=== PATIENT | female | born 1955 | race Caucasian/White ===

== ENCOUNTER 2022-04-03 16:42 | Emergency (ER) | payer MEDICARE, SELFPAY ==
[2022-04-03 16:51] VITALS: BP 157/71; PULSE 92; RESP 18; TEMP 37.3; O2SAT 97
== END 2022-04-03 17:42 | disposition left against medical advice (07) ==
LOC: EXPBETH 16:50
PROVIDERS: Emergency Provider Registered Nurse; PCP Family Medicine
DX: Z53.21 Procedure and treatment not carried out due to patient leaving prior to being seen by health care provider (principal)
CPT/HCPCS: 99199

== ENCOUNTER 2023-01-18 11:22 | Emergency (ER) | payer MEDICARE, SELFPAY ==
--- NOTE | ~2023-01-18 | XR_ITS ---
EXAMINATION: XR chest 2V DATE: 01/18/2023 12:35 INDICATION: Cough and congestion TECHNIQUE: PA and lateral views of the chest are obtained. COMPARISON: 08/04/2018 FINDINGS: The lungs are free of acute opacities. No pleural effusion or pneumothorax. The cardiomedia stinal silhouette is normal. There is severe thoracic spondylosis. IMPRESSION: 1. No acute cardiopulmonary abnormality. Reviewed, dictated and finalized at location B.
[2023-01-18 11:28] VITALS: BP 139/72; PULSE 62; RESP 20; TEMP 36.4; O2SAT 96
--- NOTE | 2023-01-18 12:11 | ED.URI ---
HPI - URI/Sore Throat General Chief Complaint: Upper Respiratory Infection Stated Complaint: Chest Congestion/Cough Time Seen by Provider: 01/18/23 12:05 Source: patient Mode of arrival: ambulatory Limitations: no limitations History of Present Illness HPI Narrative: 67 year old female who presents to [facility] care with complaints of 10 day history of cough congestion, left ear irritation with no improvement with use of OTC medications. Patient reports that she has had some productive cough of yellowish tinged mucous, denies any fevers chills or sweats or any body aches. Patient reports that she has history of asthma that is usually controlled with Singulair. Patient reports that she has noted some wheezing and some shortness of breath with exertion. MD elicited complaint: cough and other (left ear pain) Pertinent past history: asthma Onset (ago): day(s) (10) Severity: moderate Description of mucous: yellow Able to tolerate fluids by mouth: Yes Treatments prior to arrival: cold medicine and other (antihistamines) Related Data Home Medications Medication Instructions Recorded Confirmed atorvastatin 20 mg tablet mg 01/18/23 gabapentin 300 mg capsule mg 01/18/23 labetalol 200 mg tablet mg 01/18/23 levothyroxine 150 mcg tablet mcg 01/18/23 losartan 50 mg tablet mg 01/18/23 metformin 1,000 mg tablet mg 01/18/23 montelukast 10 mg tablet mg 01/18/23 pantoprazole 40 mg tablet,delayed mg PO 01/18/23 release tizanidine 4 mg tablet mg 01/18/23 tramadol 50 mg tablet mg 01/18/23 Allergies Allergy/AdvReac Type Severity Reaction Status Date / Time Sulfa (Sulfonamide Allergy Intermediate Hives / Verified 08/04/18 09:46 Antibiotics) Red Face Review of Systems Review of Systems: CONSTITUTIONAL: Reports some malaise, no chills, sweats, or fever. EYES: Denies visual changes, redness, or discharge. ENT: Reports rhinorrhea, congestion, no sinus pain,positive for left otalgia, no sore throat. CARDIOVASCULAR: Denies chest pain, palpitations, or edema. RESPIRATORY: Reports cough.?Reports some CLOUD and wheezing GASTROINTESTINAL: Denies abdominal pain, nausea, vomiting, diarrhea SKIN: Denies rash or itching. MUSCULOSKELETAL: Denies myalgia. NEUROLOGIC: Denies headache. All systems reviewed & are unremarkable except as noted in HPI and below PMFSH Past Medical History Medical History (Updated 01/20/23 @ 00:00 by Traci Ignacio) Arthritis Asthma Atrial fibrillation Bronchitis Diabetes GERD (gastroesophageal reflux disease) Hyperlipidemia Hypertension Hypothyroidism Surgical History Surgical History (Updated 01/19/23 @ 10:28 by Shahrzad Carvalho NP) History of cholecystectomy History of dental surgery History of hysterectomy Social History Social History (Updated 01/19/23 @ 10:38 by Shahrzad Carvalho NP) Smoking status: Never smoker Alcohol intake: unknown Substance use type: does not use Living arrangements: with family Gender identity (if verbalized by the patient): Female Comments At time of signature, agree with nursing past medical, surgical, social and family history. There is no relevant family history pertinent to the presenting complaint Exam Narrative: GENERAL: Well-appearing, well-nourished,obese, and in no acute distress. HEAD: Normocephalic EYES: PERRLA, conjunctivae clear ENT: Nares clear, turbinates edematous and erythematous, clear discharge. Mucous membranes moist. TM pearly lópez with dull light reflex bilaterally;Left ear canal red and excoriated no tragal tenderness. Oropharynx erythematous without lesions. Tonsils not enlarged and without exudate, no drooling, no hoarseness, no trismus, uvula midline. NECK: Supple. No lymphadenopathy CHEST: coarse in bases wheezing noted auscultation, breath sounds equal.Positive for wheezing, no rhonchi, rales, or stridor. No respiratory distress, speaks in full sentences.harsh cough at times productive SAO2 9
== END 2023-01-18 13:03 | disposition home or self-care (01) ==
PROVIDERS: Emergency Provider Registered Nurse; PCP Family Medicine
DX: J40 Bronchitis, not specified as acute or chronic (principal); H60.92 Unspecified otitis externa, left ear; M19.90 Unspecified osteoarthritis, unspecified site; J45.909 Unspecified asthma, uncomplicated; I48.91 Unspecified atrial fibrillation; E11.9 Type 2 diabetes mellitus without complications; K21.9 Gastro-esophageal reflux disease without esophagitis; E78.5 Hyperlipidemia, unspecified; I10 Essential (primary) hypertension; E03.9 Hypothyroidism, unspecified
CPT/HCPCS: 71046; 99213; G0463

== ENCOUNTER 2023-04-19 12:21 | Emergency (ER) | payer MEDICARE, SELFPAY ==
--- NOTE | ~2023-04-19 | XR_ITS ---
EXAMINATION: XR lumbar spine 2-3V DATE: 04/19/2023 13:08 INDICATION: Low back pain TECHNIQUE: Anteroposterior and lateral views of the lumbar spine, and cone-down lateral view of the l umbosacral junction were obtained. COMPARISON: None. FINDINGS: There are 3 mm of anterolisthesis of L4 on L5. Body alignment is otherwise maintained. Ther e is mild loss of intervertebral disc space height at L1-2 and L2-3. The vertebral body heights are m aintained. Small degenerative osteophytes project from the anterior endplates of multiple vertebral b odies. There is mild facet joint osteoarthritis of the lower lumbar spine. IMPRESSION: 1. Mild lumbar spondylosis without acute findings. Reviewed, dictated and finalized at location B. [employer]IST
[2023-04-19 12:36] VITALS: BP 138/72; PULSE 63; RESP 18; TEMP 37.2; O2SAT 94
--- NOTE | 2023-04-19 12:47 | ED.BACK ---
HPI - Back Pain/Injury General Chief Complaint: Back Pain/Injury Stated Complaint: Lower Back Injury Source: patient, RN notes reviewed and old records reviewed Mode of arrival: ambulatory Limitations: no limitations History of Present Illness HPI Narrative: 67-year-old female presents to [facility] with complaint of lower back pain this started after patient tried to lift her mother off the floor and felt a pop in lower back this a.m. Patient denies numbness or tingling, loss of bowel or bladder. Patient states pain is worse with movement MD elicited complaint: back pain Onset (ago): hour(s) (4) Related Data Home Medications Medication Instructions Recorded Confirmed atorvastatin 20 mg tablet mg 01/18/23 gabapentin 300 mg capsule mg 01/18/23 labetalol 200 mg tablet mg 01/18/23 levothyroxine 150 mcg tablet mcg 01/18/23 metformin 1,000 mg tablet mg 01/18/23 montelukast 10 mg tablet mg 01/18/23 tizanidine 4 mg tablet mg 01/18/23 tramadol 50 mg tablet mg 01/18/23 Allergies Allergy/AdvReac Type Severity Reaction Status Date / Time Sulfa (Sulfonamide Allergy Intermediate Hives / Verified 04/19/23 12:50 Antibiotics) Red Face methotrexate Allergy Blister Verified 04/19/23 12:49 prednisone AdvReac Other Verified 04/19/23 12:49 Review of Systems Constitutional: Constitutional: Reports no additional constitutional complaints, Denies body ache(s), Denies chills, Denies fatigue, Denies fever(s) and Denies headache(s) Eyes: Eyes: Reports no additional eye complaints and Denies blurry vision ENT: Reports system reviewed and no additional complaints, except as documented, Denies vertigo, Denies dizziness, Denies ear discharge, Denies otalgia, Denies facial pain, Denies headache(s), Denies nasal congestion, Denies nasal discharge, Denies sinus pain, Denies sinus pressure and Denies sore throat Cardiovascular: Cardiovascular: Reports no additional cardiovascular complaints, Denies chest pain, Denies chest pain at rest, Denies rapid heart rate and Denies dyspnea Respiratory: Respiratory: Reports no additional respiratory complaints, Denies chest congestion, Denies cough, Denies pain on inspiration, Denies pain with cough and Denies dyspnea Gastrointestinal: Gastrointestinal: Denies abdominal pain, Denies diarrhea, Denies nausea and Denies vomiting Musculoskeletal: Musculoskeletal: Reports as per HPI and Reports back pain Integumentary/Breasts: Skin/Breast: Denies rash Neurologic: Reports system reviewed and no additional complaints, except as documented, Denies vertigo, Denies dizziness and Denies headache(s) Endocrine: Endocrine: Denies fatigue PMFSH Past Medical History Medical History (Updated 04/19/23 @ 13:18 by Elva Aguilera APRN) Arthritis Asthma Atrial fibrillation Bronchitis Diabetes GERD (gastroesophageal reflux disease) Hyperlipidemia Hypertension Hypothyroidism Surgical History Surgical History (Updated 01/19/23 @ 10:28 by Shahrzad Carvalho NP) History of cholecystectomy History of dental surgery History of hysterectomy Social History Social History (Updated 01/19/23 @ 10:38 by Shahrzad Carvalho NP) Smoking status: Never smoker Alcohol intake: unknown Substance use type: does not use Living arrangements: with family Gender identity (if verbalized by the patient): Female Comments At the time of my signature, I reviewed and agree with the nursing past medical, surgical, social, and family history. There is no relevant family history pertinent to the patient complaint. Exam Const: General: cooperative, healthy appearing, no acute distress and well nourished Nutritional Appearance: well nourished Orientation/consciousness: patient oriented x3 Limitations: no limitations HENMT: Head: normal to inspection and normocephalic Ears: external ears normal, TM's normal bilaterally, mastoids normal and Abnormal EAC present Face/Nose/Sinus: normal facial exam Face and s
== END 2023-04-19 13:23 | disposition home or self-care (01) ==
PROVIDERS: Emergency Provider Registered Nurse; PCP Family Medicine
DX: S39.012A Strain of muscle, fascia and tendon of lower back, initial encounter (principal); I48.91 Unspecified atrial fibrillation; E78.5 Hyperlipidemia, unspecified; I10 Essential (primary) hypertension; E11.9 Type 2 diabetes mellitus without complications; E03.9 Hypothyroidism, unspecified; X50.0XXA Overexertion from strenuous movement or load, initial encounter
CPT/HCPCS: 72100; 99213; G0463

== ENCOUNTER 2023-12-28 18:17 | Emergency (ER) | payer MEDICARE, SELFPAY ==
[2023-12-28 18:28] VITALS: BP 147/77; PULSE 80; RESP 16; TEMP 36.5; O2SAT 96
--- NOTE | 2023-12-28 19:18 | ED.URI ---
HPI - URI/Sore Throat General Chief Complaint: Upper Respiratory Infection Stated Complaint: Cough/Runny Nose History of Present Illness HPI Narrative: patient is a 68-year-old female, past medical history significant for asthma and liver cirrhosis, presents to [facility] care with 1 week history of dry cough that is barking, rhinorrhea and malaise. She denies associated fevers. She states that she began taking antibiotics that were made for fish, as her takes care finish antibiotics when he has only worked well for him. She states that she has been taking these medications for the past 4 days has not found any relief. She has not been on steroids recently. She denies chest pain or shortness of breath, she has not been using her rescue inhaler. She states that she feels her symptoms are reminiscent of bronchitis , prompting her visit Related Data Home Medications Medication Instructions Recorded Confirmed atorvastatin 20 mg tablet mg 01/18/23 gabapentin 300 mg capsule mg 01/18/23 labetalol 200 mg tablet mg 01/18/23 levothyroxine 150 mcg tablet mcg 01/18/23 metformin 1,000 mg tablet mg 01/18/23 montelukast 10 mg tablet mg 01/18/23 tizanidine 4 mg tablet mg 01/18/23 tramadol 50 mg tablet mg 01/18/23 diclofenac sodium 75 mg mg PO 12/28/23 tablet,delayed release meclizine 12.5 mg tablet mg 12/28/23 Allergies Allergy/AdvReac Type Severity Reaction Status Date / Time Sulfa (Sulfonamide Allergy Intermediate Hives / Verified 12/28/23 18:25 Antibiotics) Red Face methotrexate Allergy Blister Verified 12/28/23 18:25 prednisone AdvReac Other Verified 12/28/23 18:25 Review of Systems ENT: Reports as per HPI Respiratory: Respiratory: Reports as per HPI [facility] Past Medical History Medical History (Updated 12/28/23 @ 19:26 by FROYLAN Rogers) Arthritis Asthma Atrial fibrillation Bronchitis Diabetes GERD (gastroesophageal reflux disease) Hyperlipidemia Hypertension Hypothyroidism Surgical History Surgical History (Updated 01/19/23 @ 10:28 by Shahrzad Carvalho NP) History of cholecystectomy History of dental surgery History of hysterectomy Social History Social History (Updated 01/19/23 @ 10:38 by Shahrzad Carvalho NP) Smoking status: Never smoker Alcohol intake: unknown Substance use type: does not use Living arrangements: with family Gender identity (if verbalized by the patient): Female Exam Const: General: healthy appearing and no acute distress Nutritional Appearance: obese Orientation/consciousness: patient oriented x3 Limitations: no limitations HENMT: Head: normal to inspection Face/Nose/Sinus: Normal external nose present and Nasal discharge present clear bilateral ( copious) Mouth: Yes Normal oral and palatal mucosa present Throat: posterior oropharynx normal and uvula midline Eyes: Conjunctivae: conjunctivae normal Pupils: Equal, round and reactive pupils present EOM: EOMs intact bilaterally Neck: Neck: normal visual inspection Chest: Chest palpation & inspection: normal inspection of the chest Resp: Effort & Inspection: normal respiratory effort Cardio: Rate: regular rate Rhythm: regular rhythm Skin: General skin exam: normal color Neuro: General: patient oriented x3 Cranial nerves: Yes Nystagmus not present Speech: normal speech Gait exam (Neuro): Normal gait present Extrem: General: normal to inspection and no clubbing, cyanosis or edema Course Course Emergency Course: patient is advised to plan to treat with steroid taper, promethazine DM, continued use of her inhaler at home, stopping the [id number] fish antibiotics of unknown sort as they are not marked for humans and may be unsafe to take with her other home medications as well as her chronic medical conditions. Follow up with PCP in 3 days without fail, ER for condition worsens in any way. Patient is agreeable with plan. Level of Care: Express Care Visit (92773) Vit
== END 2023-12-28 19:36 | disposition home or self-care (01) ==
PROVIDERS: Emergency Provider Nurse Practitioner Family; PCP Family Medicine
DX: J20.9 Acute bronchitis, unspecified (principal); M19.90 Unspecified osteoarthritis, unspecified site; J45.909 Unspecified asthma, uncomplicated; I48.91 Unspecified atrial fibrillation; E11.9 Type 2 diabetes mellitus without complications; K21.9 Gastro-esophageal reflux disease without esophagitis; E78.5 Hyperlipidemia, unspecified; I10 Essential (primary) hypertension; E03.9 Hypothyroidism, unspecified
CPT/HCPCS: 99213; G0463

== ENCOUNTER 2024-10-10 12:32 | Emergency (ER) | payer MEDICARE, SELFPAY ==
[2024-10-10 12:39] VITALS: BP 143/53; PULSE 70; RESP 20; TEMP 36.9; O2SAT 98
--- NOTE | 2024-10-10 12:48 | ED_ITS ---
HPI - URI/Sore Throat General Chief Complaint: Upper Respiratory Infection Stated Complaint: possible pneumonia Source: patient Mode of arrival: ambulatory Limitations: no limitations History of Present Illness HPI Narrative: 69 y/o female with hx afib and remote hx collapsed lung presented for c/o cough, sob, and chest congestion for over 10 days. Endorses nausea, headache, fatigue and reports wheezing at night. Pt was prescribed albuterol inhaler tessalon perles and doxy / by PCP, but denies improvement. Says she called pcp again yesterday, and was advised to go to the ER. She did not go yesterday because her son was in town before deployment. Related Data Home Medications ?Medication ?Instructions ?Recorded ?Confirmed ?Last Taken ?Type atorvastatin 20 mg tablet mg 01/18/23 Unknown History gabapentin 300 mg capsule mg 01/18/23 Unknown History labetalol 200 mg tablet mg 01/18/23 Unknown History levothyroxine 150 mcg tablet mcg 01/18/23 Unknown History metformin 1,000 mg tablet mg 01/18/23 Unknown History montelukast 10 mg tablet mg 01/18/23 Unknown History tizanidine 4 mg tablet mg 01/18/23 Unknown History tramadol 50 mg tablet mg 01/18/23 Unknown History diclofenac sodium 75 mg mg PO 12/28/23 Unknown History tablet,delayed release benzonatate 100 mg capsule mg PO 10/10/24 Unknown History doxycycline monohydrate 100 mg mg 10/10/24 Unknown History capsule furosemide 40 mg tablet mg 10/10/24 Unknown History Allergies Allergy/AdvReac Type Severity Reaction Status Date / Time Sulfa (Sulfonamide Allergy Intermediate Hives / Verified 10/10/24 12:49 Antibiotics) Red Face methotrexate Allergy Blister Verified 10/10/24 12:49 prednisone AdvReac Other Verified 10/10/24 12:49 Review of Systems Review of Systems: CONSTITUTIONAL: Denies body aches, fever, chills, or sweats. EYES: Denies visual changes, redness, or discharge. ENT: Denies rhinorrhea, congestion, sore throat, or otalgia. CARDIOVASCULAR: Denies chest pain, palpitations, or edema. RESPIRATORY: Reports cough, sob, wheezing. GASTROINTESTINAL: reports nausea Denies abdominal pain, vomiting, or diarrhea. SKIN: Denies rash, itching, or wounds. MUSCULOSKELETAL: Denies back pain, joint pain, or myalgia. NEUROLOGIC: reports headache, Denies numbness, tingling, or weakness. All systems reviewed & are unremarkable except as noted in HPI and below PMFSH Past Medical History Medical History (Updated 10/10/24 @ 13:15 by Joanie Yoon APRN) Atrial fibrillation Arthritis Diabetes Hypothyroidism GERD (gastroesophageal reflux disease) Hyperlipidemia Hypertension Bronchitis Asthma Surgical History Surgical History (Updated 01/19/23 @ 10:28 by Shahrzad Carvalho NP) History of dental surgery History of hysterectomy History of cholecystectomy Social History Social History (Updated 01/19/23 @ 10:38 by Shahrzad Carvalho NP) Smoking status: Never smoker Alcohol intake: unknown Substance use type: does not use Living arrangements: with family Gender identity (if verbalized by the patient): Female Comments At time of signature, I have reviewed and agree with nursing past medical, surgical, social and family history unless otherwise noted. Please see nursing chart for further information. There is no relevant family history pertinent to the presenting complaint Exam 2 Narrative: GENERAL: mildly ill-appearing, in no acute distress. EYES: EOMI. No redness or drainage. Conjunctivae normal. ENT: Mucous membranes pink and moist. No rhinorrhea. NECK: Normal AROM. Supple. CHEST: No respiratory distress; speaks full sentences but appears with effort. Wheezing to left rao. HEART: Regular rate and rhythm. Cardiac murmur is appreciated. ABDOMEN: Soft, nontender, nondistended, normal active bowel sounds. EXTREMITIES: Normal range of motion. Left foot chronic edema. SKIN: Warm, dry, no rash. Capillary refill normal. Normal skin turgor. NEURO: Alert and oriented x3. Gait steady. Course Course Emergency Course: Patient is aware of diagnosis, understands and agrees to treatment plan. Anticipatory guidance given. Patient agrees to follow-up as directed and is aware of reasons to seek care at the emergency department. Portions of this record may have been created with voice recognition software Level of Care: Express Care Visit Transfer Transfered to: [facility] Transportation: Other ( Private vehicle) Transfer rationale: Pt is agreeable to transfer. Requests transfer to [facility] via private vehicle. Risks of transportation reviewed with pt including injury, worsening of condition and . v/u. will be driving pt; Report called to hospital, spoke with Jenn HANSON, Dr Aiken, accepting physician. Pt is in stable condition at time of transfer. Advised to remain NPO and go directly to the hospital. MDM - URI/Sore Throat MDM Narrative Medical decision making narrative: Pt presented with cough, sob, fatigue, unimproved after doxy. Shared decision making pt elects to transfer to ER, and declines imaging or RT at this time. Ptrequests [facility]. Differential Diagnosis Differential diagnosis: Likely upper respiratory infection, sinusitis, viral infection, bronchitis, pharyngitis and other (Angioedema, perforation, asthma, pneumonia, PE, tension pneumothorax, cardiac tamponade MS, pericarditis, pleural effusion, CHF, bronchitis, cardiac arrhythmia) Discharge Plan Discharge Clinical Impression: Bronchitis Patient Disposition: Acute Care Hospital Condition: Stable Patient Language: Ukrainian Prescriptions: No Action atorvastatin 20 mg tablet labetalol 200 mg tablet tizanidine 4 mg tablet tramadol 50 mg tablet metformin 1,000 mg tablet levothyroxine 150 mcg tablet gabapentin 300 mg capsule montelukast 10 mg tablet albuterol sulfate 90 mcg/actuation HFA aerosol inhaler 2 puff inhalation QID PRN (Reason: shortness of breath or wheezing) Qty: 6.7 0RF meclizine 12.5 mg tablet diclofenac sodium 75 mg tablet,delayed release (DR/EC) PO promethazine-DM 6.25-15 mg/5 mL syrup 5 ml PO Q4-6H PRN (Reason: cough) Qty: 118 0RF prednisone 10 mg tablet 10 mg PO DIRECTED Qty: 32 0RF Rx Instructions: Take 4 tabs po daily days 1-5, then take 3 tabs po daily days 6-7. then take 2 tabs po daily days 8-9, then 1 tab po daily days 10-11 Follow-up/Referrals: Eligio,Carlos Zee MD [Primary Care Provider] - Time of Disposition: 13:15
--- OUTSIDE RECORDS SUMMARY | 2024-10-10 13:23 | XMS_ITS | Clinical Summary ---
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 Role Phone Unavailable Primary Care Provider Unavailabl e Encounters Date Type Department Care Team Description 09/21/2024 External Device Data [facility] Provider, Abstract 09/20/2024 External Device Data [facility] Provider, Abstract 09/19/2024 External Device Data [facility] Provider, Abstract 07/19/2024 External Device Data [facility] Provider, Abstract from Last 3 Months Social History Tobacco Use Types Packs/Day Years Used Date Smoking Tobacco: Never Assessed Comments Unknown Sex and Gender Information Value Date Recorded Sex Assigned at Not on file Legal Sex Female 1:42 PM CDT Gender Identity Not on file Sexual Orientation Not on file Plan of Treatment Health Maintenance Due Date Last Done Comments DIABETES ANNUAL FOOT EXAM 1971 DIABETES ANNUAL RETINAL EXAM 1971 DIABETES MICROALBUMIN ANNUAL SCREEN 1971 LDL CHOLESTEROL ANNUAL 1971 DTAP/TDAP/TD VACCINES (1 - Tdap) 1972 FIT-DNA Q 3 years 1998 FIT/FOBT Q 1 year 1998 Flex Sig/CT Colonography Q 5 years 1998 ZOSTER VACCINE (1 of 2) 2003 RSV VACCINE (60+ or ) (1 - Risk 60-74 years 1-dose series) 2013 OSTEOPOROSIS SCREENING 2018 PNEUMOCOCCAL VACCINE 50+ YEA RS (2 of 2 - PPSV23) 04/24/2019 02/27/2019, 12/13/2017 BREAST CANCER SCREENING 11/28/2020 11/29/19 20, 11/29/2019, 03/26/2017 DIABETES HBA1C Q 6 MONTHS 10/22/2023 04/22/2023 INFLUENZA VACCINE (#1) 2023 02/27/2019 COLORECTAL SCREENING 10/05/2031 10/04/2021, 10/04/2021, 09/24/2021 Colorectal Cancer Screening 10/05/2031 Insurance MEDICARE PART A AND B [employer] MEDICARE SUPPLEMENT
--- OUTSIDE RECORDS SUMMARY | 2024-10-10 13:23 | XMS_ITS | Referral Summary ---
Author Organization [facility] Address [address] [place] [address] Care Team Providers Care Sports Medicine Specialist Name Role Phone Carlos Campbell MD Primary Care Provider [phone] Hernesto Barahona MD Unavailable [phone] Val Watkins MD Unavailable [phone] Roberto Love MD Unavailable Santi Sloan MD Unavailable [phone] Encounters Date Type Department Care Team Description 09/28/2024 9:59 AM CDT - 09/28/2024 11:59 PM CDT Hospital Encounter [facility] [address] [place] [address] Jackson Marquis MD Spondylosis of lumbar region without myelopathy or radiculopathy Discharge Disposition: Discharge to home or self care 09/27/2024 Telephone [facility] [address] [place] [address] Jackson Marquis MD Pre-Sedation 08/18/2024 10:45 AM CDT - 08/18/2024 11:59 PM CDT Hospital Encounter [facility] [address] [place] [address] Jackson Marquis MD Spondylosis of lumbar region without myelopathy or radiculopathy (Primary Dx); Sacroiliitis; Chronic left-sided low back pain without sciatica Discharge Disposition: Discharge to home or self care 08/17/2024 Results Follow-Up [facility] [address] [facility] 5th [place] [address] [place] [address] Wilda Barrera NP Basic metabolic panel 08/16/2024 2:40 PM CDT Lab [facility] [address] [facility] [address] [place] [address] [place] [address] Age-related osteoporosis without current pathological fracture 08/16/2024 Telephone [facility] [address] [facility] [address] [place] [id number] Wilda Barrera NP 08/16/2024 2:00 PM CDT Office Visit [facility] [address] [facility] 5[address] [place] [address] [place] [id number] Wilda Barrera NP Age-related osteoporosis without current pathological fracture (Primary Dx) 08/02/2024 Telephone [facility] [address] [place] [address] Jackson Marquis MD pain diary for 08/03/24 08/02/2024 1:30 PM CDT - 08/02/2024 11:59 PM CDT Hospital Encounter [facility] [address] [place] [address] Jackson Marquis MD Spondylosis of lumbar region without myelopathy or radiculopathy Discharge Disposition: Discharge to home or self care 07/31/2024 Telephone [facility] [address] [place] [address] Jackson Marquis MD will new med intefere with injection 07/24/2024 Telephone [facility] [address] [facility] [address] [place] [address] Jackson Marquis MD medication question from Last 3 Months Allergies Active Allergy Reactions Criticality Noted Date Comments Ciprofloxacin Nausea only Low 12/28/2007 Methotrexate Other (See comments) Low 06/30/2022 Cold sores Methylprednisolone Unknown 09/23/2021 Pt cannot have steroids d/t liver dz Sulfa (Sulfonamide Antibiotics) Itching Low Medications levothyroxine (SYNTHROID, LEVOTHROID) 150 mcg tablet Take 1 tablet (150 mcg total) by mouth match up person before breakfast. 30 tablet 5 8 Active montelukast (SINGULAIR) 10 mg tablet Take 1 tablet (10 mg total) by mouth daily 2 9 Active gabapentin (NEURONTIN) 300 mg capsule Take 2 capsules (600 mg total) by mouth nightly 1 Active golimumab (SIMPONI ARIA IV) Infuse into a venous catheter every 28 (twenty-eigh t) days Dose unknown. Active acetaminophen 500 mg capsuleIndicatio ns:Pain Take 2 capsules (1,000 mg total) by mouth every 6 (six) hours as needed for pain 30 tablet 3 Active traMADoL (ULTRAM) 50 mg tablet Take 1 tablet (50 mg total) by mouth as needed for pain 2 tablets, with tylenol, as needed 4 Active metFORMIN (GLUCOPHAGE) 1,000 mg tablet Take 0.5 tablets (500 mg total) by mouth 2 (two) times a day with meals [address] (VOLTAREN) 75 mg EC tablet 4 Active meclizine (ANTIVERT) 12.5 mg tablet Take by mouth 3 (three) times a day as needed 4 Active tiZANidine (ZANAFLEX) 2 mg tabletIndication s:Closed wedge compression fracture of L1 vertebra with delayed healing, subsequent encounter,Sacroi liac joint pain Take 1 tablet (2 mg total) by mouth every 6 (six) hours as needed for muscle spasms 60 tablet 5 Active atorvastatin (LIPITOR) 20 mg tablet TAKE 1 TABLET BY MOUTH EVERY DAY 90 tablet 3 4 Active labetaloL (NORMODYNE,TRAND ATE) 200 mg tablet TAKE 1 TABLET BY MOUTH TWICE A DAY 180 tablet 3 5 Active furosemide (LASIX) 20 mg tablet 5 Active mycophenolate mofetil (CELLCEPT) 500 mg tablet Take 1 tablet (500 mg total) by mouth 2 (two) times a day 4 Active abaloparatide 80 mcg (3,120 mcg/1.56 mL) pen injectorIndicati ons:Age-related osteoporosis without current pathological fracture Inject 0.04 mL (80 mcg total) under the skin daily 1.56 mL 11 5 Active pen needle, diabetic 32 gauge x needleIndication s:Age-related osteoporosis without current pathological fracture Please use one daily with tymlos injection. 90 each 3 5 Active CALCIUM ORAL Take by mouth daily Active cholecalciferol 25 mcg (1,000 unit) tablet Take by mouth daily Unsure of dose. Active multivitamin combination no.56 (DARSHANA-LIFE MULTIVITAMIN ORAL) Take by mouth daily Centrum Silver Active magnesium oxide 400 mg magnesium capsule Take by mouth Active potassium chloride ER 10 mEq CR capsule 5 09/29/19 25 Discontinu ed(Therapy completed) Active Problems Problem Noted Date Diagnosed Date History of colon polyps 05/26/2024 Assessment & Plan (05/26/2024 4:49 PM GLASS OR MIRROR INSPECTOR): Most recent colonoscopy in 2021 as detailed below. Polypectomy, with indeterminate pathology. Some hyperplastic, some sessile serrated. Plan -Patient is due for repeat colonoscopy in 2024. The procedure risks including, but not limited to perforation infection bleeding and anesthetic complications were discussed and the patient verbalized understanding and agreed to proceed. Liver cirrhosis secondary to ONEILL 05/26/2024 Assessment & Plan (05/26/2024 4:50 PM GLASS OR MIRROR INSPECTOR): Presumably secondary to Metabolic dysfunction-Associated Steatotic Liver Disease (MASLD). No alcohol use, negative HCV antibody. Overall, has been well compensated. No evidence of ascites, hepatic encephalopathy, or bleeding. Recent labs stable. Ascites: None on exam. Has been started on Lasix 20 mg by PCP for LE edema. Defer diuretics to PCP and cardiology given comorbidity Esophageal Varices: Grade one EV on EGD in 2021. On labatolol per cardiology. Could consider NSBB. Due for repeat screening- EGD at time of colon in 08/2024. Hepatic Encephalopathy: A&O x 4, no asterixis. HCC screening: Negative US in 12/2023; AFP WNL 04/2024. Repeat US in 06/2024. Spondylosis of lumbar region without myelopathy or radiculopathy 05/18/2024 Sacroiliitis 02/16/2024 Anemia 12/02/2023 Other thrombophilia 07/01/2023 Discharge planning issues 04/23/2023 Assessment & Plan (04/28/2023 10:53 AM GLASS OR MIRROR INSPECTOR): 04/22 surgery with Ortho complete 04/23 pending PT/OT evaluation 04/24- pending BLE MRI, OT to evaluate, PT rec IPR 04/28 discharge home. HLD (hyperlipidemia) 04/22/2023 Assessment & Plan (04/22/2023 11:41 AM GLASS OR MIRROR INSPECTOR): Continue Atorvastatin 20 mg daily Compression fracture of first lumbar vertebra Assessment & Plan (04/28/2023 10:52 AM GLASS OR MIRROR INSPECTOR): CT lumbar spine (04/21/2023) significant for acute L1 compression fracture with a proximal 20% height loss, no retropulsion, and no kyphotic deformity at that level. Neurosurgery spine consulted. TLSO brace for comfort, Follow up with NSGY spine in 4-6 weeks with upright AP and lateral xrays of the lumbar spine. Appointment Scheduling: . Acute pain 04/22/2023 Assessment & Plan (04/28/2023 10:45 AM GLASS OR MIRROR INSPECTOR): - Continue home Gabapentin 300-600 at HS, Continue home Tizanidine 2 mg prn TID, may use prn home Naproxen 500 mg BID, can continue APAP 1000 mg Q 6hr no more than 4 grams per day, using Oxycodone 5 mg Q 4hr prn about twice daily, will discharge home with short course. IF need additional doses after will need to follow with pcp for continue pain management. Fall, initial encounter 04/21/2023 Closed displaced fracture of left femoral neck 1 06/22/2022 Assessment & Plan (04/28/2023 10:49 AM GLASS OR MIRROR INSPECTOR): Ortho consulted, 04/22 to surgery ([facility]), WB Status: as tolerated LLE, abductor pillow, ambulate with assist, Posterior hip precautions - DVT ppx:home Eiquis 2.5 mg PO BID x 6 weeks, Bone health at discharge, Suture removal in 3 weeks planned 05/13/2023, MRI of bilateral femur benign, There is little evidence of a stress reaction involving the cortices of the bilateral femoral diaphyses. Follow up with Orthopedic Surgery 05/12/[id number] Lima. Aortic valve stenosis 09/01/2022 Hematochezia 10/01/2021 Near syncope 10/01/2021 Rectal bleeding 09/30/2021 Encounter for medication review 09/24/2021 Assessment & Plan (04/22/2023 11:33 AM GLASS OR MIRROR INSPECTOR): [facility] [address] [place] [address] , Medication list verified, unable to verify the following medications will need further information: -Metformin -Zoloft -Ferrous Sulfate -Golimumab Altered bowel function 09/23/2021 Asthma 09/23/2021 Low back pain 09/23/2021 Pain of right lower extremity 09/23/2021 Blood per rectum 09/18/2021 Gastrointestinal hemorrhage 09/18/2021 Overview (09/19/2021): Added automatically from request for surgery [id number] Abnormal liver function test 07/12/2020 Assessment & Plan (07/12/2020 8:43 AM GLASS OR MIRROR INSPECTOR): 6 mos ago UQ abd pains with D but no change in stool color In nov bili 2.2 and it had been normal before. 1999 ERCP and lap ute for stones. Will repeat lfts and get MRCP to [facility] for choledocholithiasis. Change in bowel habits 07/12/2020 Assessment & Plan (07/12/2020 8:45 AM GLASS OR MIRROR INSPECTOR): 6 mos ago seveerre constipation and then it change to peanut butter consistency and for the last week has retiurned to normal single formed stool daily. Last colonoscopy over 15 yrs ago. Will do screening colonoscopy and then discuss treatment. Encounter for screening colonoscopy 07/12/2020 Overview (07/12/2020): Added automatically from request for surgery [id number] Valvular heart disease 10/20/2019 Overview (10/15/2022): Mild aortic stenosis on echo 15 Sep 2019. [id number] AI on echo 11 August 2021. Normal LVEF. [id number] AI/moderate on echo 08 July 2022. Catheterization on 07 Sep 2022 showed only mild with normal coronaries (EAS). Assessment & Plan (10/21/2023 1:46 PM CDT): Exam in the office revealed a 3/6 murmur at the upper sternal border. She has no chest pain or shortness of breath or syncope. We will get another echocardiogram next year. Assessment & Plan (10/15/2022 12:36 PM CDT): We discussed catheterization findings from last month. She has no chest pain or shortness of breath or syncope. Agreeable to getting another echocardiogram next year. Will follow the aortic stenosis with periodic echoes. Assessment & Plan (06/11/2022 3:16 PM GLASS OR MIRROR INSPECTOR): Patient denies any chest pain or shortness of breath with exertion. Exam today clearly showed a 3/6 aortic stenosis murmur. We discussed that this was not mentioned on the last echo from 2021. We should get another echo now. Assessment & Plan (12/04/2021 1:26 PM CDT): Discussed echo findings from 4 months ago. She rarely gets short of breath. No change in medical regimen here. Assessment & Plan (07/17/2021 3:33 PM CDT): 3/6 murmur at the upper sternal border on exam today. We discussed getting an echocardiogram and patient is agreeable. Assessment & Plan (06/13/2020 1:31 PM GLASS OR MIRROR INSPECTOR): We discussed echo report from last year. No chest pain or shortness of breath with exertion. No change in medication at this time. Assessment & Plan (10/20/2019 3:15 PM CDT): We discussed echo findings from last month. I reassured her that aortic stenosis is really mild at this time. No change in medication. Morbid obesity 09/15/2019 Elevated LDL cholesterol level 06/09/2019 Overview (04/23/2024): LDL of 123 mg/dL on 31 Aug 2016. LDL of 116 mg/dL on 09 June 2019. LDL of 63 mg/dL on 02 October 2020. LDL of 51 mg/dL on 08 December 2021. LDL of 69 mg/dl on 20 April 2024. On Lipitor 20 mg p.o. q.d.. Normal coronaries by catheterization 07 Sep 2022 (EAS). Assessment & Plan (10/21/2023 1:45 PM CDT): We discussed LDL cholesterol goal less than 100 mg/dL. She was at goal 2 years ago but she really needs another lipid/liver panel soon. Assessment & Plan (10/15/2022 12:36 PM CDT): We discussed LDL cholesterol goal less than 100 mg/dL as she is not known to have CAD. She was at goal last year. Continue same medical regimen. Assessment & Plan (12/04/2021 1:24 PM CDT): Discussed LDL cholesterol goal of less than 100 mg/dL as she is not known to have CAD. Had a normal nuclear stress test on 25 May 2019. No change in medical regimen here. Assessment & Plan (07/17/2021 3:33 PM CDT): We discussed LDL cholesterol goal of less than 100 mg/dL. She was at goal last year. Another lipid/liver panel would be useful and she is agreeable. Assessment & Plan (10/20/2019 3:15 PM CDT): Patient has not had any classic angina or shortness of breath with exertion. Had a nuclear stress test in May 2019 with no ischemia and we discussed that result. No change in medication. Assessment & Plan (06/09/2019 12:56 PM GLASS OR MIRROR INSPECTOR): She has not had a lipid panel for a long time. She is agreeable to getting a fasting lipid/liver panel now. Abdominal pain 05/25/2019 Assessment & Plan (05/25/2019 4:12 AM GLASS OR MIRROR INSPECTOR): Atypical chest pain that does not seem to be exertional. Patient has multiple risk factors including diabetes, hypertension, obesity. Troponins negative x2, awaiting 3rd. EKG shows a sinus rhythm with no ST changes. Patient had a negative stress test in 2013. Will order another stress test at this time. Chest pain resolved spontaneously. Type 2 diabetes mellitus, [facility] long-term current use of insulin 05/25/2019 Assessment & Plan (04/28/2023 10:42 AM GLASS OR MIRROR INSPECTOR): Historical medication list states Metformin 1000 mg bid has not been filled at current pharmacy, last A1C was 2021, this admission A1C 5.8, intermittently needed 1-3 units of ssi for glucose range 282 - 107. Continue consistent carb diet and monitoring glucose at discharge, follow up with pcp. Assessment & Plan (05/25/2019 4:10 AM GLASS OR MIRROR INSPECTOR): Sugars are controlled. Patient is only on metformin. Continue low-dose sliding scale. Paroxysmal A-fib 05/25/2019 Overview (10/15/2022): Had recurrence in December 2017, August 2018 and 2 other episodes less than 2 hours each. Xarelto 20 mg p.o. q.p.m. taken off last year because he has cirrhosis with esophageal varices. Assessment & Plan (10/21/2023 1:46 PM CDT): At 1 episode of rapid heartbeat for a few minutes recently. That was the only episode. If she has frequent episodes of atrial fibrillation, left atrial appendage closure device may have to be implanted. We discussed that procedure. Assessment & Plan (10/15/2022 12:37 PM CDT): Patient denies any palpitations, dizziness or syncope. We discussed risk of stroke in case atrial fibrillation comes back. Unfortunately, she can not take full-dose oral anticoagulation because of presence of esophageal varices. Assessment & Plan (06/11/2022 3:15 PM GLASS OR MIRROR INSPECTOR): Patient has not had any atrial fibrillation. Usually she can tell because she would feel fatigued and some shortness of breath. Not on Xarelto anymore because of GI bleeding in Summer 2021. Apparently, she has esophageal varices in the setting of cirrhosis. Her GI specialist does not want her to take Xarelto or any blood thinner anymore. Assessment & Plan (12/04/2021 1:25 PM CDT): Last episode of atrial fibrillation about a year ago. She may have 1 or 2 episodes per year. She can tell it irregular in the chest and then she takes her pulse to double check. Her Zafar Vasc score is 3 and with discussed the risks of stroke. Unfortunately, she has cirrhosis/portal hypertension with evidence of gastric and paraesophageal varices. Thus, risk of bleeding is quite high. Will avoid aspirin and Xarelto. Assessment & Plan (07/17/2021 3:33 PM CDT): Apparently stopped the Xarelto few months ago for unknown reason. She says he has been too busy taking care of family member. We discussed Zafar Vasc score of 3 and the fact that she really needs to go back on Xarelto. She is agreeable. Bleeding precautions discussed for Xarelto 20 mg p.o. q.p.m.. Assessment & Plan (06/13/2020 1:32 PM GLASS OR MIRROR INSPECTOR): Apparently she can tell when she has atrial fibrillation. Last time she had atrial fibrillation for less than an hour was in March 2020. It was going around 140 beats per minute. Prior to that, she could not remember when the last time it was. She stopped the Xarelto 20 mg per day on her own because of daily nose bleeding and is now taking only baby aspirin daily. I gave her 2 options--going on Xarelto 15 mg p.o. q.p.m. to reduce chance of nose bleeding, or stay on aspirin and let me know if the atrial fibrillation becomes more frequent or longer. She prefers to stay on aspirin and she will keep me posted. Assessment & Plan (10/20/2019 3:14 PM CDT): No recent palpitations, dizziness or syncope. No bleeding problems with Xarelto. Patient asked about meloxicam and I said it is okay to take with food. No change in medications. Assessment & Plan (06/09/2019 12:55 PM GLASS OR MIRROR INSPECTOR): No problems with Xarelto. No bleeding problems. Since he has a fairly persistent cough and some shortness of breath, I will stop the amiodarone completely. Assessment & Plan (05/25/2019 4:10 AM GLASS OR MIRROR INSPECTOR): Patient has a history of AFib and follows with Dr. Barahona. She is currently on amiodarone and labetalol. She is supposed to be on Xarelto however does not take it as she has to pay $87 a month. I had a long discussion with patient explaining the reasons for anticoagulation to decrease risk of stroke. It was explained to patient that given her risk factors of diabetes, hypertension, gender and age she is at higher risk for strokes. It was explained to patient that there is an alternative medication that would be less expensive, Coumadin, however patient is not interested in taking Coumadin. She states she will pay for the Xarelto. Patient is currently on therapeutic dosing of Lovenox which will continue until stress test has been completed and is negative at which point we can switch to Xarelto. Continue to monitor. Dark stools 05/25/2019 Assessment & Plan (05/25/2019 4:20 AM GLASS OR MIRROR INSPECTOR): Patient denies any black or bloody stools but states her stools have been d ark . Patient has epigastric tenderness and is on meloxicam for her arthritis. Will check a guaiac. Hemoglobin is normal. Continue to monitor. Morbid obesity with BMI of 40.0-44.9, adult 05/04 Steatosis of liver 05/08/2008 Esophagitis 04/18/2008 Assessment & Plan (05/25/2019 4:11 AM GLASS OR MIRROR INSPECTOR): Exact arthritis is unknown. Patient is on Arava, prednisone and meloxicam. Those have been resumed. ZACHARY (generalized anxiety disorder) 12/28/2007 Hypertension 10/03/2007 Overview (10/21/2023): On Labetalol 200 mg p.o. b.i.d.. Not on losartan 50 mg p.o. q.d. anymore--it was not refilled by the pharmacy. Assessment & Plan (10/21/2023 1:44 PM CDT): We discussed that today's blood pressure is good at 134/75. Apparently, the losartan was never refilled by the pharmacy. I advised her to take her blood pressures frequently and let Dr. Campbell know if it goes over 140/90 consistently. Assessment & Plan (04/28/2023 10:38 AM GLASS OR MIRROR INSPECTOR): - Continue home Labetalol 200 mg bid, Follow up with PCP regarding restarting Losartan. Monitor blood pressure reading at home and take to next follow up appointment. Assessment & Plan (10/15/2022 12:39 PM CDT): Patient brought me her list of blood pressures from the past few weeks showing rather high blood pressures in the afternoon/evening. It was up to 170-180 mm of Hg systolic. Thus, I will add losartan 50 mg p.o. q.p.m. to be taken at 3:00 p.m. in the afternoon. She will keep an eye on the blood pressures and let me know. Assessment & Plan (05/25/2019 4:10 AM GLASS OR MIRROR INSPECTOR): Blood pressure is slightly elevated this time. Patient is on labetalol which will hold prior to stress test. But has been resumed with hold parameters. Hypothyroidism 10/03/2007 Overview (09/23/2021): 05 Assessment & Plan (04/28/2023 10:39 AM GLASS OR MIRROR INSPECTOR): - Continue levothyroxine 150 mcg daily , follow up with pcp for continue management. Assessment & Plan (05/25/2019 4:11 AM GLASS OR MIRROR INSPECTOR): Continue levothyroxine Dizziness Hypokalemia Acute blood loss anemia Assessment & Plan (04/25/2023 1:11 PM GLASS OR MIRROR INSPECTOR): - Likely on chronic anemia - Hgb 11.3 at OSH - Hgb on arrival 11.6 - 04/24 Hgb 9.9 - 04/25 Hgb 9.3 - Transfuse for Hgb <7.0 or symptomatic - CBC as indicated Resolved Problems Problem Noted Date Diagnosed Date Resolved Date Cirrhosis of liver without ascites 12/02/2023 05/26/2024 Immunizations Immunization Administration Dates Next Due Influenza, Trivalent, High D ose, Split, Preservative Free, Intramuscular 02/27/2019 Pneumococcal Conjugate PCV 13 02/27/2019, 018 Social History Tobacco Use Types Packs/Day Years Used Date Smoking Tobacco: Never Smokeless Tobacco: Never Tobacco Cessation:Counseling Given: Not Answered Alcohol Use Standard Drinks/Week Comments No 0 (1 standard drink = 0.6 oz pur e alcohol) Social Connection and Isolat ion Panel [NHANES] Answer Date Recorded In a typical week, how many times do you talk on the phone with family, friends, or neighbors? More than three times a week 09/25/2021 How often do you get togethe r with friends or relatives? More than three times a week 09/25/2021 How often do you attend chur or episcopalian services? More than 4 times per year 09/25/2021 Do you belong to any clubs o r organizations such as alevism groups, unions, fraternal or athletic groups, or school groups? Yes 09/25/2021 How often do you attend meet ings of the clubs or organizations you belong to? More than 4 times per year 09/25/2021 Are you , , di vorced, , never , or living with a partner? 09/25/2021 AUDIT-C Answer Date Recorded Q1: How often do you have a drink containing alcohol? Never 08/18/2024 Q2: How many drinks containi ng alcohol do you have on a typical day when you are drinking? Patient does not drink Q3: How often do you have si x or more drinks on one occasion? Never 08/18/2024 Overall Financial Resource Strain (CARDIA) Answe r Date Recorded How hard is it for you to pa y for the very basics like food, housing, medical care, and heating? Not hard at all 09/25/2021 PHQ-2 Answer Date Recorded PHQ-2 Total Score (If total score is 3 or more points, staff should administer the PHQ-9) 0 06/30/2022 PRAPARE - Transportation Answer Date Re corded In the past 12 months, has l ack of transportation kept you from medical appointments or from getting medications? No 09/01 In the past 12 months, has l ack of transportation kept you from meetings, work, or from getting things needed for daily living? No 09/25/2021 Personal Safety Answer Date Recorded Have you ever been in or are you currently in a harmful physical or emotional relationship or is someone making you feel afraid or unsafe? Denies 04/21/2023 Comments No Sex and Gender Information Value Date Recorded Sex Assigned at Not on file Legal Sex Female 11:56 AM GLASS OR MIRROR INSPECTOR Gender Identity Not on file Sexual Orientation Not on file Last Filed Vital Signs Vital Sign Reading Time Taken Comments Blood Pressure 113/60 09/28/2024 12:05 PM CDT Pulse 56 09/28/2024 12:05 PM CDT Temperature 36.6 C (97.9 F) 09/28/2024 10:12 AM CDT Respiratory Rate 12 09/28/2024 12:05 PM CDT Oxygen Saturation 95% 09/28/2024 12:05 PM CDT Inhaled Oxygen Concentration - - Weight 123.4 kg (272 lb) 09/28/2024 10:12 AM CDT Height 171.5 cm (5' 7.5) 09/28/2024 10:12 AM CD T Body Mass Index 41.97 09/28/2024 10:12 AM CDT Plan of Treatment Not on file Goals Goal Patient Goal Type Associated Problems Recent Progress Patient-Stated? Author CCM Chronic Pain Care Plan Chronic Care Management Yes Soledad Jensen RN Note: Problem: Chronic Pain Goals: 1. Minimize further functional decline 2. Maximize quality of life 3. Control pain Strategies: - Activity/exercise program recommendation - Conservative stepwise pain medicine strategy with multi-disciplinary approach - Recommend healthy lifestyle strategies and compensatory methods as needed Reduce the likelihood of falling Lifestyle Yes Soledad Jensen RN Note: Below are four things you can do to prevent falls: Begin an exercise program to improve your leg strength & balance Ask your doctor or pharmacist to review your medicines Get annual eye check-ups & update your eyeglasses Make your home safer by: Removing clutter & tripping hazards Putting railings on all stairs & adding grab bars in the bathroom Having good lighting, especially on stairs Contact your local community or senior center for information on exercise, fall prevention programs, or options for improving home safety. Medical Devices Implanted Type Area Manifest/Order Organizer Print Orders Device Identifier Shelf Expiration Date Model / Serial / Lot [employer] Angio-Seal Vip 6fr Closere Device [id number] - [id number] Implanted:Qty: 1 on 09/07/2022 by Dong Dietrich MD at [facility] [employer] 04/01/2023 [id number] / / [id number] [employer]/Ort ho Prep-Im Plug [place] Sponge Suction Hip Kit Thr Latex Free [id number] - [id number] Implanted:Qty: 1 on 04/22/2023 by Rachel Lima MD at [facility] Left: Hip [employer]/O rtho [id number] 02/02/2033 [id number] / / [id number] [employer] Versys Legacy 52mm Unipolar Endoprosthetic Hip 04/15 Head Femoral [id number] - [id number] Implanted:Qty: 1 on 04/22/2023 by Rachel Lima MD at [facility] Left: Hip [employer] [id number] 09/30/2029 [id number] / / [id number] [employer] Versys Advocate 14mm 10mm 135mm 38mm Primary Cemented Satin [id number] - [id number] Implanted:Qty: 1 on 04/22/2023 by Rachel Lima MD at [facility] Left: Hip [employer] [id number] 02/24/2030 [id number] / / [id number] [employer] Versys 12mm Cemented Hip Distal Centralizer Stem Pmma Sterile [id number] - [id number] Implanted:Qty: 1 on 04/22/2023 by Rachel Lima MD at [facility] Left: Hip [employer] [id number] 05/04/2027 [id number] / / [id number] [employer] Simplex P Full Dose Radiopaque Preblend Cement Bone Tobramycin 6197-9-010 - [id number] Implanted:Qty: 2 on 04/22/2023 by Rachel Lima MD at [facility] Left: Hip [employer] [id number] 06/02/2024 6197-9-010 / / [id number] [employer] Simplex P Full Dose Radiopaque Preblend Cement Bone Tobramycin 6197-9-010 - [id number] Implanted:Qty: 1 on 04/22/2023 by Rachel Lima MD at [facility] Left: Hip [employer] [id number] 06/30/2024 6197-9-010 / / [id number] Procedures Procedure Name Priority Date/Time Associated Diagnosis Comments PAIN MGMT IMAGING LUMBAR/SACRAL ABLATION LEFT Schedule Routine, Read Routine (OP Routine) 09/28/2024 11:47 AM CDT Spondylosis of lumbar region without myelopathy or radiculopathy BASIC METABOLIC PANEL Routine 08/16/2024 2:22 PM CDT Age-related osteoporosis without current pathological fracture PAIN MGMT IMAGING LUMBAR/SACRAL FACET/ MEDIAL BRANCH BLOCK LEFT Schedule Routine, Read Routine (OP Routine) 08/02/2024 2:34 PM CDT Spondylosis of lumbar region without myelopathy or radiculopathy DEXA TBS AXIAL SKELETON BONE DENSITY 1 OR MORE SITES Schedule Routine, Read Routine (OP Routine) 05/16/2024 9:59 AM GLASS OR MIRROR INSPECTOR Age-related osteoporosis without current pathological fracture LIPID PANEL Routine 04/20/2024 9:35 AM GLASS OR MIRROR INSPECTOR Elevated LDL cholesterol level HEMOGLOBIN A1C Routine 04/22/2023 5:21 AM GLASS OR MIRROR INSPECTOR COLONOSCOPY 10/04/2021 8:37 AM CDT HEPATITIS C ANTIBODY Routine 09/19/2021 3:45 PM CDT SCREENING MAMMOGRAM BILATERAL W RUDY Schedule Routine, Read Routine (OP Routine) 11/29/2019 8:27 AM CDT Encounter for screening mammogram for malignant neoplasm of breast from Last 3 Months or Most Recently Relevant to Health Maintenance Results * Imaging Lumbar/Sacral Medial Branch RFA Left ([id number]) (09/28/2024 11:47 AM CDT) Narrative [facility] - 09/28/2024 12:01 PM CDT The images from this study are not interpreted by Radiology. Please refer to the physician's procedure / OR operative note. Jackson Marquis MD IMG PAIN MGMT PROCEDURES F inal Result [facility] * (ABNORMAL) Basic metabolic panel (08/16/2024 2:22 PM CDT) Glucose 184(H) 64 - 99 mg/dL [facility] Comment: NONFASTING GLUCOSE RANGE = 64-199 mg/dL FASTING GLUCOSE 64 - 99 = NORMAL FASTING GLUCOSE 100 - 125 = IMPAIRED FASTING GLUCOSE FASTING GLUCOSE >=126 = PROVISIONAL DIAGNOSIS OF DIABETES Potassium 4.0 3.3 - 5.1 mmol/L [facility] Creatinine 0.98 0.60 - 1.10 mg/dL [facility] BUN 15 7 - 23 mg/dL [facility] Sodium 138 135 - 145 mmol/L [facility] Chloride 101 95 - 107 mmol/L [facility] CO2 Content 25 21 - 29 mmol/L [facility] Calcium 9.9 8.6 - 10.3 mg/dL [facility] eGFR 61.7 >60.0 mL/min/1.7 3 m2 [facility] Blood 08/16/2024 2:22 PM CDT 08/16/2024 3:12 PM CDT us Wilda Barrera COMPUTER TESTER LAB BLOOD ORDERABLES Final Re sult Performing Organization Address [facility]/ZIP Co de Phone Number [facility] * Imaging Lumbar/Sacral Facet Medial Branch Block Left ([id number]) (08/02/2024 2:34 PM CDT) Narrative [facility] - 08/02/2024 2:45 PM CDT The images from this study are not interpreted by Radiology. Please refer to the physician's procedure / OR operative note. Jackson Marquis MD IMG PAIN MGMT PROCEDURES F inal Result Performing Organization Address City/[facility]/ZIP Co de Phone Number [facility] * Dexa TBS Axial Skeleton Bone Density 1 or more sites (05/16/2024 9:59 AM GLASS OR MIRROR INSPECTOR) Anatomical Region Laterality Modality Wrist, Body N/A Radiographic Avril ging Narrative 05/16/2024 11:15 AM GLASS OR MIRROR INSPECTOR Patient Name: Lin Mast Date of : 1955 Date of scan: 05/16/2024 Bone mineral density was performed on a Hologic Discovery Densitometer. Based on machine cross-calibration and precision studies the least significant changes of this densitometer is 0.024 g/cm2 at the spine, 0.020 g/cm2 at the total proximal femur, and 0.014g/cm2 at the forearm. HISTORY: This is a 69 y.o. postmenopausal female with a history of asthma, thyroid disease, and vitamin D deficiency. She reports that she has never smoked. She has never used smokeless tobacco. Currently on treatment with vitamin D and thyroid hormone and current complaint of arm pain, back pain, neck pain, and leg pain. INDICATIONS: Menopause status, history of prior hip and vertebral fracture, and vitamin D deficiency. FINDINGS: BONE MINERAL DENSITY OF THE LUMBAR SPINE Bone Mineral Density (BMD) of the lumbar spine was measured from L2-L4 and the average density was calculated to be 0.905 gm/cm2. This corresponds to a T-score (standard deviations from the mean of young adults) of -1.6. There is no previous study available for comparison. BONE MINERAL DENSITY OF THE PROXIMAL FEMUR Bone Mineral Density (BMD) of the right hip total was found to be 0.877 gm/cm2. This corresponds to a T-score standard deviations from the mean of young adults of -0.5. Femoral neck is 0.458 gm/cm2 with a T-score (standard deviations from the mean of young adults) of -3.5. There is no previous study available for comparison. SUMMARY: Bone mineral density shows evidence of osteoporosis and marked increase risk of fracture. L1 excluded from bone mineral density analysis of the lumbar spine due to history of compression deformity. The lumbar spine Trabecular Bone Score TBS was not obtained due to BMI being out of range. ADDITIONAL COMMENTS: Postmenopausal Women and Men Over 50: Diagnostic criteria: Osteoporosis: BMD at or below -2.5 T-score; Osteopenia (low bone mass): BMD between -1.0 and -2.5 T-score. If the patient has a history of a fragility fracture, a fracture that occurred with trauma equivalent to a fall from a standing position or less, then the diagnosis is osteoporosis regardless of bone density. The history and data sections of the bone mineral density scan were prepared by Jewell Thao(Angel) CBDT who is accredited by the International Society of Clinical Densitometry. The overall patient assessment and scan interpretation were performed by Diogenes Galindo M.D. who is certified by the International Society of Clinical Densitometry. [id number] Diogenes Galindo MD IMG DXA PROCEDURES Final Result * Lipid panel (04/20/2024 9:35 AM GLASS OR MIRROR INSPECTOR) Cholesterol 154 30 - 199 mg/dL Comment: Interpretive Data Ages < or = 19 years Acceptable: <170 mg/dL Borderline high: 170-199 mg/dL High: >or= 200 mg/dL Ages > or = 20 years Desirable: <200 mg/dL Borderline high: 200-239 mg/dL High: >or= 240 mg/dL Literature References: 1. Expert Panel on Integrated Guidelines for Cardiovascular Health and Risk Reduction in Children and Adolescents. Pediatrics 2011;128:S213 2. NCEP Expert Panel. Circulation 2004;110:227 Current Interpretive Data was last revised on 2017. Triglycerides 84 <=149 mg/dL [facility] ([place]) Comment: Interpretive Data Ages < or = 9 years Acceptable: <75 mg/dL Borderline high: 75-99 mg/dL High: >or= 100 mg/dL Ages 10 to 20 years Acceptable: <90 mg/dL Borderline high: 90-129 mg/dL High: >or= 130 mg/dL Ages > or = 20 years Desirable: <150 mg/dL Borderline high: 150-199 mg/dL High: 200-499 mg/dL Very high: >or= 499 mg/dL Literature References: 1. Expert Panel on Integrated Guidelines for Cardiovascular Health and Risk Reduction in Children and Adolescents. Pediatrics 2011;128:S213 2. NCEP Expert Panel. Circulation 2004;110:227 Current Interpretive Data was last revised on 2017. HDL 69 >=40 mg/dL [facility] ([place]) Comment: Interpretive Data Ages < or = 19 years Acceptable: >45 mg/dL Borderline low: 40-45 mg/dL Low: <40 mg/dL Ages > or = 20 years Desirable: >or= 60 mg/dL Low: <40 mg/dL Literature References: 1. Expert Panel on Integrated Guidelines for Cardiovascular Health and Risk Reduction in Children and Adolescents. Pediatrics 2011;128:S213 2. NCEP Expert Panel. Circulation 2004;110:227 Current Interpretive Data was last revised on 2017. LDL, calculated 69 <=129 mg/dL [facility]) Comment: Interpretive Data Ages < or = 19 years Acceptable: <110 mg/dL Borderline high: 110-129 mg/dL High: >or= 130 mg/dL Ages > or = 20 years Optimal: <100 mg/dL Near optimal: 100-129 mg/dL Borderline high: 130-159 mg/dL High: >160 mg/dL Calculated using the Lake LDL-C estimating equation. This equation was implemented on 2023. Prior to this date LDL-C was estimated using the Friedewald equation. Literature References: 1. Expert Panel on Integrated Guidelines for Cardiovascular Health and Risk Reduction in Children and Adolescents. Pediatrics 2011;128:S213 2. NCEP Expert Panel. Circulation 2004;110:227 3. Lake Mckinnon et al. MONSERRAT Cardiol. 2019August 31;5(5):540-548. doi: [email or web address] Current Interpretive Data was last revised on 2023. Non-HDL Cholesterol 85 mg/dL [facility] ([place]) Comment: Interpretive Data Ages < or = 19 years Acceptable: <120 mg/dL Borderline high: 120-144 mg/dL High: >145 mg/dL Ages > or = 20 years When triglycerides are >200 mg/dL, Non-HDL cholesterol is a secondary target of therapy with treatment goals that are 30 mg/dL greater than the LDL cholesterol target. Literature References: 1. Expert Panel on Integrated Guidelines for Cardiovascular Health and Risk Reduction in Children and Adolescents. Pediatrics 2011;128:S213 2. NCEP Expert Panel. Circulation 2004;110:227 Current Interpretive Data was last revised on 2017. Chol/HDL ratio 2 [facility] ([place]) Blood 04/20/2024 9:35 AM GLASS OR MIRROR INSPECTOR 04/20/2024 9:52 AM GLASS OR MIRROR INSPECTOR us Hernesto Barahona MD LAB BLOOD ORDERABLES Final Re sult [facility]) [facility] Department [place] [address] * (ABNORMAL) Hemoglobin A1c (04/22/2023 5:21 AM GLASS OR MIRROR INSPECTOR) Hgb A1C 5.8(H) 4.0 - 5.6 % [facility] Estimated Average Glucose 120 mg/dL [facility] Comment: The ADA recommends reporting an estimated Average Glucose (eAG) with all Hemoglobin A1c results using the equation derived from a study of 507 normal and diabetic adults. Minority populations were underrepresented and children were not included. (Diabetes Care 2020; 43(S1): S66-S76). The eAG is not equivalent to a fasting glucose. Blood 04/22/2023 5:21 AM GLASS OR MIRROR INSPECTOR 04/22/2023 5:39 AM GLASS OR MIRROR INSPECTOR us Dayana Phillips MD LAB BLOOD ORDERABLES F inal Result [facility] Department [place] [address] * COLONOSCOPY (10/04/2021 8:37 AM CDT) Anatomical Region Laterality Modality Other Narrative Procedure Note Roberto Love MD - 10/04/2021 8:37 AM CDT [facility] Endoscopy Lab Patient Name: Lin Mast Procedure Date: 10/04/2021 8:37 AM Date of : 1955 Admit Type: Inpatient Age: 66 Gender: Female Note Status: Finalized Attending MD: Roberto Love M.D. Procedure Date: 10/04/2021 Procedure: Colonoscopy Indications: Hematochezia Providers: Roberto Love M.D., JOHNNIE Collins (Anesthesia Staff), Sol De La Garza, RN, Shana Casanova, RN Referring MD: Medicines: Monitored Anesthesia Care Complications: No immediate complications. Estimated Blood Loss: Estimated blood loss: none. Procedure: Pre-Anesthesia Assessment: - Airway Examination: normal oropharyngeal airwayand neck mobility. - Respiratory Examination: clear to auscultation. - ASA Grade Assessment: III - A patient with severe systemic disease. - After reviewing the risks and benefits, thepatient was deemed in satisfactory condition to undergo the procedure. - The risks and benefits of the procedure and the sedation options and risks were discussed with the patient. All questions were answered and informed consent was obtained. After I obtained informed consent, the scope was passed under direct vision. Throughout theprocedure, the patient's blood pressure, pulse, and oxygen saturations were monitored continuously. The scopewas passed under direct vision. The Colonoscope was introduced through the anus and advanced to the the cecum, identified by the appendiceal orifice, ileocecal valve and palpation. The colonoscopy was performed with ease. The patient tolerated the procedure well. The quality of the bowelpreparation was good. The quality of the bowel preparation was evaluated using the BBPS (Galva Bowel Preparation Scale) with scores of: Right Colon = 2 (minoramount of residual staining, small fragments of stooland/or opaque liquid, but mucosa seen well), TransverseColon = 2 (minor amount of residual staining, small fragments of stool and/or opaque liquid, but mucosa seen well) and Left Colon = 2 (minor amount of residual staining, small fragments of stool and/or opaque liquid, but mucosa seen well). The totalBBPS score equals 6. The quality of the bowelpreparation was good. The bowel preparation used was Plenvu via split dose instruction. Bowel prep was administered using a split dose. Findings: The perianal and digital rectal examinations were normal. Multiple medium-mouthed diverticula were found in the sigmoidcolon. A single medium-mouthed diverticulum was found in the descendingcolon. There was active bleeding coming from the diverticular opening. Tostop active bleeding, three hemostatic clips were successfully placed.Clip application integration engineer: [employer]. There was no bleeding at the end ofthe procedure. Area was successfully injected with 2 mL of a 0.1 mg/mL solution of epinephrine for hemostasis. Red blood was found in the descending colon. A post polypectomy scar was found in the ascending colon. The scar tissue was healthy in appearance. Internal hemorrhoids were found during retroflexion. The hemorrhoids were moderate. Impression: - Diverticulosis in the sigmoid colon. - Moderate diverticulosis in the descending colon. There was active bleeding coming from thediverticular opening. Clips were placed. Clip application integration engineer:[employer]. Injected. - Blood in the descending colon. - Post-polypectomy scar in the ascending colon. - Internal hemorrhoids. - No specimens collected. Recommendation: - Repeat colonoscopy in 3 years for surveillancebased upon biopsy of recent large polyps which wereremoved on recent colonoscopy(09/24/21) which reads indeterminate polyps. - [facility] patient to [facility] for [facility]care. - Clear liquid diet. Procedure Code(s): --- Professional --- 17038, Colonoscopy, flexible; with control of bleeding, any method Diagnosis Code(s): --- Professional --- K64.8, Other hemorrhoids K57.31, Diverticulosis of large intestine without perforation or abscess with bleeding K92.2, Gastrointestinal hemorrhage, unspecified Z98.890, Other specified postprocedural states K92.1, Melena (includes Hematochezia) CPT copyright 2020 [employer]. All rights reserved. The codes documented in this report are preliminary and upon manager basketball reviewmay be revised to meet current compliance requirements. Electronically signed by Roberto Love MD Roberto Love M.D. 10/04/2021 9:35:34 AM Number of Addenda: 0 Note Initiated On: 10/04/2021 8:37 AM Roberto Love MD ENDOSCOPY PROCEDURES Edited Resu lt - Final * Hepatitis C antibody (09/19/2021 3:45 PM CDT) Hep C Ab Nonreactive Nonreactive [facility] Comment: Interpretive Data Nonreactive: Antibodies to HCV not detected. Does NOT exclude the possibility of recent exposure to HCV. Equivocal: Equivocal for HCV antibodies. Supplemental molecular testing will be automatically performed to determine infection status in accordance with current CDC screening recommendations. Reactive: Positive for HCV antibodies. This may represent current or past HCV infection. Supplemental molecular testing will be automatically performed to determine current infection status in accordance with current CDC screening recommendations. Interpretive data was last revised on 2019. Blood 09/19/2021 3:45 PM CDT 09/19/2021 4:06 PM CDT Roberto Love MD LAB MICROBIOLOGY - GENERAL ORDER HALIMA Final Result [facility] [address] [address] Department [place] [address] * Screening Mammogram Bilateral W Rudy (11/29/2019 8:27 AM CDT) Anatomical Region Laterality Modality Breast Bilateral Mammography 11/30/2019 8:22 AM CDT Impressions 11/30/2019 8:25 AM CDT There is no mammographic evidence of malignancy. A 1 year screening mammogram is recommended. BI-RADS: 1 - Negative. The patient has been or will be contacted. The patient will be entered into a reminder system with a target due date of 1 year for her next mammogram. Electronically signed by: Miller Norton M.D. Narrative 11/30/2019 8:25 AM CDT EXAMINATION: SCREENING MAMMOGRAM BILATERAL W RUDY ORDERING HEALTHCARE PROVIDER: CARLOS CAMPBELL HISTORY: Routine screening mammography. COMPARISON: 03/26/2017 TECHNIQUE: CC and MLO views of the bilateral breasts were obtained with digital technique using breast tomosynthesis with C view. Computer aided detection was utilized. FINDINGS: DENSITY: There are scattered fibroglandular elements in the bilateral breasts. BREASTS: There are no suspicious masses, suspicious calcifications, or other suspicious findings in either breast. There has been no suspicious interval change. Carlos Campbell MD IMG MAMMO PROCEDURES Final Re sult from Last 3 Months or Most Recently Relevant to Health Maintenance [facility] MEDICARE AET SENIOR SUPPLEMENT MEDICARE AET SENIOR SUPPLEMENT Advance Directives For more information, please contact: [phone] * Full Code (Latest Code Status on File) Date Activated Date Inactivated Comments 04/22/2023 3:20 PM 04/28/2023 7:04 PM * Full Code Date Activated Date Inactivated Comments 04/21/2023 10:36 PM 04/22/2023 3:20 PM * Full Code Date Activated Date Inactivated Comments 09/07/2022 12:19 PM 09/07/2022 6:47 PM * Full Code Date Activated Date Inactivated Comments 10/04/2021 10:09 AM 10/07/2021 8:56 PM * Full Code Date Activated Date Inactivated Comments 10/01/2021 2:44 AM 10/04/2021 10:09 AM Healthcare Agents on File Name Relationship Healthcare Agent Relationshi p Communication Hernesto Mast Spouse First Alternate Health Care Agent Care Teams Sports Medicine Specialist Relationship Specialty Start Date End Date Carlos Campbell MD PCP - General 03/10/17 Hernesto Barahona MD Consulting Physician Cardiovascular Disease 12/01/17 Val Watkins MD Consulting Physician Gastroenterology 05/25/19 Roberto Love MD Consulting Physician Gastroenterology 10/07/21 Santi Sloan MD [address] [address] Consulting Physician Rheumatology 10/07/21
--- OUTSIDE RECORDS SUMMARY | 2024-10-10 13:23 | XMS_ITS | Clinical Summary ---
Author Organization [facility] Address [address] [place] [address] Care Team Providers Care Flanging Roll Operator Name Role Phone Carlos Campbell MD Primary Care Provider [phone] Hernesto Barahona MD Unavailable [phone] Val Watkins MD Unavailable [phone] Roberto Love MD Unavailable Santi Sloan MD Unavailable [phone] Allergies Active Allergy Reactions Criticality Noted Date Comments Ciprofloxacin Nausea only Low 12/28/2007 Methotrexate Other (See comments) Low 06/30/2022 Cold sores Methylprednisolone Unknown 09/23/2021 Pt cannot have steroids d/t liver dz Sulfa (Sulfonamide Antibiotics) Itching Low Medications levothyroxine (SYNTHROID, LEVOTHROID) 150 mcg tablet Take 1 tablet (150 mcg total) by mouth drafter patent before breakfast. 30 tablet 5 8 Active [...] 05/26/2024 Assessment & Plan (05/26/2024 4:49 PM MECHANICAL AND AUTO BODY CAR CHECKER): Most recent colonoscopy in 2021 as detailed below. Polypectomy, with indeterminate pathology. Some hyperplastic, some sessile serrated. Plan -Patient is due for repeat colonoscopy in 2024. The procedure risks including, but not limited to perforation infection bleeding and anesthetic complications were discussed and the patient verbalized understanding and agreed to proceed. Liver cirrhosis secondary to ONEILL 05/26/2024 Assessment & Plan (05/26/2024 4:50 PM MECHANICAL AND AUTO BODY CAR CHECKER): Presumably secondary to Metabolic dysfunction-Associated Steatotic Liver [...] 04/23/2023 Assessment & Plan (04/28/2023 10:53 AM MECHANICAL AND AUTO BODY CAR CHECKER): 04/22 surgery with Ortho complete 04/23 pending PT/OT evaluation 04/24- pending BLE MRI, OT to evaluate, PT rec IPR 04/28 discharge home. HLD (hyperlipidemia) 04/22/2023 Assessment & Plan (04/22/2023 11:41 AM MECHANICAL AND AUTO BODY CAR CHECKER): Continue Atorvastatin 20 mg daily Compression fracture of first lumbar vertebra Assessment & Plan (04/28/2023 10:52 AM MECHANICAL AND AUTO BODY CAR CHECKER): CT lumbar spine (04/21/2023) significant for acute L1 compression fracture with a proximal 20% height loss, no retropulsion, and no kyphotic deformity at that level. Neurosurgery spine consulted. TLSO brace for comfort, Follow up with NSGY spine in 4-6 weeks with upright AP and lateral xrays of the lumbar spine. Appointment Scheduling: . Acute pain 04/22/2023 Assessment & Plan (04/28/2023 10:45 AM MECHANICAL AND AUTO BODY CAR CHECKER): - Continue home Gabapentin 300-600 at HS, [...] 06/22/2022 Assessment & Plan (04/28/2023 10:49 AM MECHANICAL AND AUTO BODY CAR CHECKER): Ortho consulted, 04/22 to surgery (Clarence), WB [...] 09/24/2021 Assessment & Plan (04/22/2023 11:33 AM MECHANICAL AND AUTO BODY CAR CHECKER): [facility] [address] [place] [address] , Medication list verified, unable to verify the following medications will need further information: -Metformin -Zoloft -Ferrous Sulfate -Golimumab Altered bowel function 09/23/2021 Asthma 09/23/2021 Low back pain 09/23/2021 Pain of right lower extremity 09/23/2021 Blood per rectum 09/18/2021 Gastrointestinal hemorrhage 09/18/2021 Overview (09/19/2021): Added automatically from request for surgery [id number] Abnormal liver function test 07/12/2020 Assessment & Plan (07/12/2020 8:43 AM MECHANICAL AND AUTO BODY CAR CHECKER): 6 mos ago UQ abd pains with D but no change in stool color In nov bili 2.2 and it had been normal before. 1999 ERCP and lap ute for stones. Will repeat lfts and get MRCP to [facility] for choledocholithiasis. Change in bowel habits 07/12/2020 Assessment & Plan (07/12/2020 8:45 AM MECHANICAL AND AUTO BODY CAR CHECKER): 6 mos ago seveerre constipation and then it change to peanut butter consistency and for the last week has retiurned to normal single formed stool daily. Last colonoscopy over 15 yrs ago. Will do screening colonoscopy and then discuss treatment. Encounter for screening colonoscopy 07/12/2020 Overview (07/12/2020): Added automatically from request for surgery [id number] Valvular heart disease 10/20/2019 Overview (10/15/2022): Mild aortic stenosis on echo 15 Sep 2019. [id number] AI on echo 11 August 2021. Normal LVEF. Dtsk-rl-[id number] AI/moderate on echo 08 July 2022. Catheterization [...] echoes. Assessment & Plan (06/11/2022 3:16 PM MECHANICAL AND AUTO BODY CAR CHECKER): Patient denies any chest pain or shortness [...] agreeable. Assessment & Plan (06/13/2020 1:31 PM MECHANICAL AND AUTO BODY CAR CHECKER): We discussed echo report from last year. [...] medication. Assessment & Plan (06/09/2019 12:56 PM MECHANICAL AND AUTO BODY CAR CHECKER): She has not had a lipid panel for a long time. She is agreeable to getting a fasting lipid/liver panel now. Abdominal pain 05/25/2019 Assessment & Plan (05/25/2019 4:12 AM MECHANICAL AND AUTO BODY CAR CHECKER): Atypical chest pain that does not seem to be exertional. Patient has multiple risk factors including diabetes, hypertension, obesity. Troponins negative x2, awaiting 3rd. EKG shows a sinus rhythm with no ST changes. Patient had a negative stress test in 2013. Will order another stress test at this time. Chest pain resolved spontaneously. Type 2 diabetes mellitus, [facility] long-term current use of insulin 05/25/2019 Assessment & Plan (04/28/2023 10:42 AM MECHANICAL AND AUTO BODY CAR CHECKER): Historical medication list states Metformin 1000 mg bid has not been filled at current pharmacy, last A1C was 2021, this admission A1C 5.8, intermittently needed 1-3 units of ssi for glucose range 282 - 107. Continue consistent carb diet and monitoring glucose at discharge, follow up with pcp. Assessment & Plan (05/25/2019 4:10 AM MECHANICAL AND AUTO BODY CAR CHECKER): Sugars are controlled. Patient is only on [...] varices. Assessment & Plan (06/11/2022 3:15 PM MECHANICAL AND AUTO BODY CAR CHECKER): Patient has not had any atrial fibrillation. [...] q.p.m.. Assessment & Plan (06/13/2020 1:32 PM MECHANICAL AND AUTO BODY CAR CHECKER): Apparently she can tell when she has [...] medications. Assessment & Plan (06/09/2019 12:55 PM MECHANICAL AND AUTO BODY CAR CHECKER): No problems with Xarelto. No bleeding problems. Since he has a fairly persistent cough and some shortness of breath, I will stop the amiodarone completely. Assessment & Plan (05/25/2019 4:10 AM MECHANICAL AND AUTO BODY CAR CHECKER): Patient has a history of AFib and [...] 05/25/2019 Assessment & Plan (05/25/2019 4:20 AM MECHANICAL AND AUTO BODY CAR CHECKER): Patient denies any black or bloody stools but states her stools have been d ark . Patient has epigastric tenderness and is on meloxicam for her arthritis. Will check a guaiac. Hemoglobin is normal. Continue to monitor. Morbid obesity with BMI of 40.0-44.9, adult 05/04 Steatosis of liver 05/08/2008 Esophagitis 04/18/2008 Assessment & Plan (05/25/2019 4:11 AM MECHANICAL AND AUTO BODY CAR CHECKER): Exact arthritis is unknown. Patient is on [...] consistently. Assessment & Plan (04/28/2023 10:38 AM MECHANICAL AND AUTO BODY CAR CHECKER): - Continue home Labetalol 200 mg bid, [...] know. Assessment & Plan (05/25/2019 4:10 AM MECHANICAL AND AUTO BODY CAR CHECKER): Blood pressure is slightly elevated this time. Patient is on labetalol which will hold prior to stress test. But has been resumed with hold parameters. Hypothyroidism 10/03/2007 Overview (09/23/2021): 05 Assessment & Plan (04/28/2023 10:39 AM MECHANICAL AND AUTO BODY CAR CHECKER): - Continue levothyroxine 150 mcg daily , follow up with pcp for continue management. Assessment & Plan (05/25/2019 4:11 AM MECHANICAL AND AUTO BODY CAR CHECKER): Continue levothyroxine Dizziness Hypokalemia Acute blood loss anemia Assessment & Plan (04/25/2023 1:11 PM MECHANICAL AND AUTO BODY CAR CHECKER): - Likely on chronic anemia - Hgb 11.3 at OSH - Hgb on arrival 11.6 - 04/24 Hgb 9.9 - 04/25 Hgb 9.3 - Transfuse for Hgb <7.0 or symptomatic - CBC as indicated Resolved Problems Problem Noted Date Diagnosed Date Resolved Date Cirrhosis of liver without ascites 12/02/2023 05/26/2024 Encounters Date Type Department Care Team Description 09/28/2024 9:59 AM CDT - 09/28/2024 11:59 PM CDT Hospital Encounter [facility] [address] [place] [phone] Jackson Marquis MD Spondylosis of lumbar region without myelopathy or radiculopathy Discharge Disposition: Discharge to home or self care 09/27/2024 Telephone [facility] [address] [place] [address] Jackson Marquis MD Pre-Sedation 08/18/2024 10:45 AM CDT - 08/18/2024 11:59 PM CDT Hospital Encounter [facility] [address] [place] [address] Jackson Marquis MD Spondylosis of lumbar region without myelopathy or radiculopathy (Primary Dx); Sacroiliitis; Chronic left-sided low back pain without sciatica Discharge Disposition: Discharge to home or self care 08/17/2024 Results Follow-Up [facility] [address] [facility] 5th [place] [address] [place] [address] Wilda Barrera NP Basic metabolic panel 08/16/2024 2:40 PM CDT Lab [facility] Metabolism and Lipid [address] [facility] 5th [place] [address] [place] [address] Age-related osteoporosis without current pathological fracture 08/16/2024 2:00 PM CDT Office Visit [facility] [address] [facility] 5th [place] [address] [place] [phone] Wilda Barrera NP Age-related osteoporosis without current pathological fracture (Primary Dx) 08/16/2024 Telephone [facility] [address] [facility] [address] [place] [phone] Wilda Barrera NP 08/02/2024 1:30 PM CDT - 08/02/2024 11:59 PM CDT Hospital Encounter [facility] [address] [place], [place] [phone] Jackson Marquis MD Spondylosis of lumbar region without myelopathy or radiculopathy Discharge Disposition: Discharge to home or self care 08/02/2024 Telephone [facility] [address] [place], [place] [phone] Jackson Marquis MD pain diary for 08/03/24 07/31/2024 Telephone [facility] [address] [place], [place] [address] Jackson Marquis MD will new med intefere with injection 07/24/2024 Telephone [facility] [address] [place] [address] Jackson Marquis MD medication question from Last 3 Months Immunizations Immunization Administration Dates Next Due Influenza, Trivalent, High D ose, Split, Preservative Free, Intramuscular 02/27/2019 Pneumococcal Conjugate PCV 13 02/27/2019, 018 Surgical History Surgery Date Site/Laterality Comments CHOLECYSTECTOMY HYSTERECTOMY COLONOSCOPY 05/03/2001 - 2002 OTHER SURGICAL HISTORY spontaneous pneumothorax age 15 DILATION AND CURETTAGE OF UTERUS TOTAL HIP ARTHROPLASTY 04/22/2023 Left Medical History Medical History Date Comments Hypertension DM type 2 (diabetes mellitus, type 2) (HCC) Asthma Arthritis Thyroid disease Esophageal varices (HCC) Cirrhosis of liver (HCC) 10/15/2021 Osteoporosis Low back pain Family History Medical History Relation Name Comments Vision loss Mother Breast cancer Mother's Sister No Known Problems Sister Broken bones Neg Hx Hip fracture Neg Hx Kyphosis Neg Hx Osteoporosis Neg Hx Scoliosis Neg Hx Relation Name Status Comments Brother interstitial lung diseas Father myelodysplasia Mother Alive Mother's Sister Sister Social History Tobacco Use Types Packs/Day Years [...] 09/25/2021 How often do you attend chur ch or rastafari services? More than 4 times per year 09/25/2021 Do you belong to any clubs o r organizations such as zoroastrianism groups, unions, fraternal or athletic groups, or [...] on file Legal Sex Female 11:56 AM MECHANICAL AND AUTO BODY CAR CHECKER Gender Identity Not on file Sexual Orientation Not on file Obstetrics History Para Term AB IAB SAB Ectopic Multiple Livin g Live Births 1 1 1 Date Outcome GA Total Labor Labor/2nd/3rd Weight Sex Type Anes PTL Mindy A1 A5 Name Clin Term Last Filed Vital Signs Vital Sign Reading [...] 09/28/2024 10:12 AM CDT Plan of Treatment Health Maintenance Due Date Last Done Comments Albumin Creatinine Ratio, Urine 1955 Dilated Eye Exam 1955 Foot Exam 1955 DTaP/Tdap/Td Vaccine (1 - Tdap) 1964 Hepatitis B Screening 1971 Zoster Vaccine (1 of 2) 1972 Well Visit 65+ 2018 Pneumococcal vaccine 65+ (2 of 2 - PPSV23) 04/24/2019 02/27/2019, 12/13/2017 Breast Cancer Screening-Mammogram 11/28/2020 020, 03/26/2017 Depression Screening 06/30/2023 06/30/2022, 05/24/19 20 Hemoglobin A1C 10/22/2023 04/22/2023, 04/03, 09/19/2021 Influenza Vaccine (Season Ended) 2025 02/28/20 19 Lipid Panel 04/20/2025 04/20/2024, 08/0 01/2022, 10/02/2020, Additional history exists eGFR 08/16/2025 08/16/2024, 05/03, 04/20/2024, Additional history exists Fall Risk Assessment 09/28/2025 09/28/2024, 08/02/2024, 02/16/2024, Additional history exists Osteoporosis Screening-Bone Density Scan 05/16/2026 05/16/2024 Colon Cancer Screening-Colonoscopy 10/05/2031 10/04/2021, 09/24/2021 Hepatitis C Screening Completed 09/19/2021, 014 Colon Cancer Screening-CT Colonography Discontinued 10/04/2021, 09/24/2021 Colon Cancer Screening-DNA Stool Discontinued 10/05/19, 09/24/2021 Colon Cancer Screening-FIT Discontinued 10/04/2021, Colon Cancer Screening-Sigmoidoscopy Discontinued 10/04/2021, 09/24/2021 Goals Goal Patient Goal Type Associated Problems [...] home safety. Medical Devices Implanted Type Area Photonics Engineer Device Identifier Shelf Expiration Date Model / Serial / Lot [employer] Angio-Seal Vip 6fr Closere Device [id number] - [id number] Implanted:Qty: 1 on 09/07/2022 by Dong Dietrich MD at [facility] 04/01/2023 [id number] / / [id number] [employer]/Ort ho Prep-Im Plug [place] Sponge Suction Hip Kit Thr Latex Free [id number] - [id number] Implanted:Qty: 1 on 04/22/2023 by Rachel Lima MD at [facility] Left: Hip [employer]/O rtho [id number] 02/02/2033 [id number] / / [id number] [employer] Versys Legacy 52mm Unipolar Endoprosthetic Hip 04/15 Head Femoral [id number] - [id number] Implanted:Qty: 1 on 04/22/2023 by Rachel Lima MD at [facility] Left: Hip [employer] [id number] 09/30/2029 [id number] / / [id number] [employer] Versys Advocate 14mm 10mm 135mm 38mm Primary Cemented Satin [id number] - [id number] Implanted:Qty: 1 on 04/22/2023 by Rachel Lima MD at [facility] Left: Hip [employer] [id number] 02/24/2030 [id number] / / [id number] [employer] Versys 12mm Cemented Hip Distal Centralizer Stem Pmma Sterile [id number] - [id number] Implanted:Qty: 1 on 04/22/2023 by Rachel Lima MD at [facility] Left: Hip [employer] [id number] 05/04/2027 [id number] / / [id number] [employer] Simplex P Full Dose Radiopaque Preblend Cement Bone Tobramycin 6197-9-010 - [id number] Implanted:Qty: 2 on 04/22/2023 by Rachel Lima MD at [facility] Left: Hip [employer] [id number] 06/02/2024 6197-9-010 / / [id number] [employer] Simplex P Full Dose Radiopaque Preblend Cement Bone Tobramycin 6197-9-010 - [id number] Implanted:Qty: 1 on 04/22/2023 by Rachel Lima MD at [facility] Left: Hip [employer] [id number] 06/30/2024 6197-9-010 / / [id number] Procedures Procedure Name Priority Date/Time Associated Diagnosis [...] Read Routine (OP Routine) 05/16/2024 9:59 AM MECHANICAL AND AUTO BODY CAR CHECKER Age-related osteoporosis without current pathological fracture LIPID PANEL Routine 04/20/2024 9:35 AM MECHANICAL AND AUTO BODY CAR CHECKER Elevated LDL cholesterol level HEMOGLOBIN A1C Routine 04/22/2023 5:21 AM MECHANICAL AND AUTO BODY CAR CHECKER COLONOSCOPY 10/04/2021 8:37 AM CDT HEPATITIS C ANTIBODY Routine 09/19/2021 3:45 PM CDT SCREENING MAMMOGRAM BILATERAL W RUDY Schedule Routine, Read Routine (OP Routine) 11/29/2019 8:27 AM CDT Encounter for screening mammogram for malignant neoplasm of breast from Last 3 Months or Most Recently Relevant to Health Maintenance Results * Imaging Lumbar/Sacral Medial Branch RFA Left ([id number]) (09/28/2024 11:47 AM CDT) Narrative RAD_PACS_[facility] - 09/28/2024 12:01 PM CDT The images from this study are not interpreted by Radiology. Please refer to the physician's procedure / OR operative note. Jackson Marquis MD IMG PAIN MGMT PROCEDURES F inal Result Performing Organization Address [facility] Co de Phone Number RAD_PACS_[facility] * (ABNORMAL) Basic metabolic panel (08/16/2024 [...] 2:22 PM CDT 08/16/2024 3:12 PM CDT Wilda Barrera PHOTOENGRAVING PROOFER LAB BLOOD ORDERABLES Final Re sult Performing Organization Address City/[facility]/ZIP Co de Phone Number [facility] * Imaging Lumbar/Sacral Facet Medial Branch Block Left ([id number]) (08/02/2024 2:34 PM CDT) Narrative RAD_PACS[facility] - 08/02/2024 2:45 PM CDT The images from this study are not interpreted by Radiology. Please refer to the physician's procedure / OR operative note. Jackson Marquis MD IMG PAIN MGMT PROCEDURES F inal Result RAD_PACS[facility] * Dexa TBS Axial Skeleton Bone Density 1 or more sites (05/16/2024 9:59 AM MECHANICAL AND AUTO BODY CAR CHECKER) Anatomical Region Laterality Modality Wrist, Body N/A Radiographic Avril ging Narrative 05/16/2024 11:15 AM MECHANICAL AND AUTO BODY CAR CHECKER Patient Name: Lin Mast Date of : 1955 Date of scan: 05/16/2024 Bone mineral density was performed on a Ambiq Micro Discovery Densitometer. Based on machine cross-calibration and [...] mineral density scan were prepared by Jewell Vasques) JASPER who is accredited by the International Society of Clinical Densitometry. The overall patient assessment and scan interpretation were performed by Diogenes Galindo M.D. who is certified by the International Society of Clinical Densitometry. [id number] us Diogenes Galindo MD IMG DXA PROCEDURES Final Result * Lipid panel (04/20/2024 9:35 AM MECHANICAL AND AUTO BODY CAR CHECKER) Cholesterol 154 30 - 199 mg/dL Comment: [...] 2017. LDL, calculated 69 <=129 mg/dL [facility] (WHITNEY) Comment: Interpretive Data [...] on 2017. Chol/HDL ratio 2 HUBERT CAROLINA (KEYMAR) Blood 04/20/2024 9:35 AM MECHANICAL AND AUTO BODY CAR CHECKER 04/20/2024 9:52 AM MECHANICAL AND AUTO BODY CAR CHECKER us Hernesto Barahona MD LAB BLOOD ORDERABLES Final Re sult Performing Organization Address City/[facility] Co de Phone Number [facility] [place] (KEYMAR) [address] [facility] [place] [address] * (ABNORMAL) Hemoglobin A1c (04/22/2023 5:21 AM MECHANICAL AND AUTO BODY CAR CHECKER) Hgb A1C 5.8(H) 4.0 - 5.6 % [facility] Estimated Average Glucose 120 mg/dL [facility] Comment: The ADA recommends reporting an estimated Average Glucose (eAG) with all Hemoglobin A1c results using the equation derived from a study of 507 normal and diabetic adults. Minority populations were underrepresented and children were not included. (Diabetes Care 2020; 43(S1): S66-S76). The eAG is not equivalent to a fasting glucose. Blood 04/22/2023 5:21 AM MECHANICAL AND AUTO BODY CAR CHECKER 04/22/2023 5:39 AM MECHANICAL AND AUTO BODY CAR CHECKER Dayana Phillips MD LAB BLOOD ORDERABLES F inal Result Performing Organization Address [facility] Co de Phone Number [facility] Department [place] [address] * COLONOSCOPY (10/04/2021 8:37 AM CDT) Anatomical Region Laterality Modality Other Narrative Procedure Note Roberto Love MD - 10/04/2021 8:37 AM CDT [facility] Patient Name: Lin Mast Procedure Date: 10/04/2021 8:37 AM Date of : 1955 Admit Type: Inpatient Age: 66 Gender: Female Note Status: Finalized Attending MD: Roberto Love M.D. Procedure Date: 10/04/2021 Procedure: Colonoscopy Indications: Hematochezia Providers: Roberto Love M.D., JOHNNIE Collins (Anesthesia Staff), Sol De La Garza, MARGIE, Shana Casanova, MARGIE Referring MD: Medicines: Monitored Anesthesia Care Complications: [...] bowel preparation was evaluated using the BBPS ([place] Bowel Preparation Scale) with scores of: Right [...] bleeding, three hemostatic clips were successfully placed.Clip charging manipulator: [employer] There was no bleeding at the end [...] from thediverticular opening. Clips were placed. Clip charging manipulator:[employer] Injected. - Blood in the descending colon. - Post-polypectomy scar in the ascending colon. - Internal hemorrhoids. - No specimens collected. Recommendation: - Repeat colonoscopy in 3 years for surveillancebased upon biopsy of recent large polyps which wereremoved on recent colonoscopy(09/24/21) which reads indeterminate polyps. - Return patient to [facility] for [facility]care. - Clear liquid diet. Procedure Code(s): --- Professional --- 68373, Colonoscopy, flexible; with control of bleeding, any method Diagnosis Code(s): --- Professional --- K64.8, Other hemorrhoids K57.31, Diverticulosis of large intestine without perforation or abscess with bleeding K92.2, Gastrointestinal hemorrhage, unspecified Z98.890, Other specified postprocedural states K92.1, Melena (includes Hematochezia) CPT copyright 2020 [employer]. All rights reserved. The codes documented in this report are preliminary and upon junior recruiter reviewmay be revised to meet current compliance [...] GENERAL ORDER HALIMA Final Result [facility] [address] Department [place] [address] * Screening Mammogram Bilateral W [...] Recently Relevant to Health Maintenance Insurance MEDICARE AET SENIOR SUPPLEMENT MEDICARE AET SENIOR SUPPLEMENT MEDICARE AETNA SENIOR SUPPLEMENT Advance Directives For more information, please contact: [phone] * Full Code (Latest Code Status on [...] First Alternate Health Care Agent Care Teams Flanging Roll Operator Relationship Specialty Start Date End Date Carlos Campbell MD PCP - General 03/10/17 Hernesto Barahona MD Consulting Physician Cardiovascular Disease 12/01/17 Val Watkins MD Consulting Physician Gastroenterology 05/25/19 Roberto Love MD Consulting Physician Gastroenterology 10/07/21 Santi Sloan MD [address] [address] Consulting Physician Rheumatology 10/07/21
--- OUTSIDE RECORDS SUMMARY | 2024-10-10 13:23 | XMS_ITS | Clinical Summary ---
Author Organization [facility] Address [address] [place] [address] Phone Care Team Providers Care Paleologist Name Role Phone Carlos Del Valle MD Primary Care Provider [phone] Social History Tobacco Use Types Packs/Day Years Used Date Smoking Tobacco: Never Assessed Comments Unknown Sex and Gender Information Value Date Recorded Sex Assigned at Not on file Legal Sex Female 2:27 PM [employer] Gender Identity Not on file Sexual Orientation Not on file Plan of Treatment Health Maintenance Due Date Last Done Comments DEXA Bone Density 1955 Hepatitis C Virus (HCV) Screening 1955 Mammogram 1955 TdaP Immunization 1955 Cologuard 1998 Colonoscopy 1998 Colorectal Cancer Screening 1998 Immunochemical Fecal Occult Blood 1998 Zoster Immunization (1 of 2) 2003 Pneumococcal Immunization (5 0+ years) (2 of 2 - PPSV23) 02/28/2020 02/27/2019, 12/13/2017 SARS-COV-2 Immunization (3 - season) 2024 05/13/2021, 07/08/2020 Influenza Immunization (Seas on Ended) 2025 02/27/2019 Respiratory Syncytial Virus (RSV) Immunization (Adult) (1 - 1-dose 75+ series) 2028 Pneumococcal Immunization Combined Discontinued 02/27/2019, 12/13/2017 Hepatitis B Immunization Aged Out No longer eligible based on patient's age to complete this topic Human Papillomavirus (HPV) Immunization Aged Out No longer eligible based on patient's age to complete this topic Meningococcal Immunization (ACWY) Aged Out No longer eligible based on patient's age to complete this topic Rotavirus Immunization Aged Out No lo nger eligible based on patient's age to complete this topic Insurance [facility] MEDICARE Care Teams Paleologist Relationship Specialty Start Date End Date Carlos Del Valle MD [address] [place] [address] PCP - General Family Medicine 04/13/16
--- OUTSIDE RECORDS SUMMARY | 2024-10-10 13:23 | XMS_ITS | Encounter Summary ---
Author Organization [facility] Address [address] [place] [address] Phone Care Team Providers Care Weaving Supervisor Name Role Phone Carlos Del Valle MD Primary Care Provider [phone] Hernesto Barahona MD Unavailable [phone] Val Watkins MD Unavailable [phone] Roberto Love MD Unavailable Santi Sloan MD Unavailable [phone] Encounter Details Date Type Department Care Team (Late st Contact Info) Description 08/17/2024 Results Follow-Up [facility] [address] [facility] 5th [place] [address] [place] [id number] Wilda Barrera NP [address] [facility] [address] [place] [address] Basic metabolic panel Social History Tobacco Use Types Packs/Day Years Used Date Smoking Tobacco: Never Smokeless Tobacco: Never Alcohol Use Standard Drinks/Week Comments No 0 [...] How often do you attend chur or yazdanism services? More than 4 times per year 09/25/2021 Do you belong to any clubs o r organizations such as hinduism groups, unions, fraternal or athletic groups, or [...] on file Legal Sex Female 11:56 AM DIV[employer]ITY INTER[employer] Gender Identity Not on file Sexual Orientation Not on file documented as of this encounter Functional Status documented as of this encounter Plan of Treatment Not on file documented as of this encounter Goals Goal Patient Goal Type Associated Problems [...] the likelihood of falling Lifestyle Yes Soledad Jensen, RN Note: Below are four things you [...] on stairs Contact your local community or [facility] for information on exercise, fall prevention programs, or options for improving home safety. documented as of this encounter Visit Diagnoses Not on filedocumented in this encounter Care Teams Weaving Supervisor Relationship Specialty Start Date End Date Carlos Del Valle MD PCP - General 03/10/17 Hernesto Barahona MD Consulting Physician Cardiovascular Disease 12/01/17 Val Watkins MD Consulting Physician Gastroenterology 05/25/19 Roberto Love MD Consulting Physician Gastroenterology 10/07/21 Santi Sloan MD [address] [address] Consulting Physician Rheumatology 10/07/21 documented as of this encounter
--- OUTSIDE RECORDS SUMMARY | 2024-10-10 13:24 | XMS_ITS | Clinical Summary ---
Author Organization [facility] Address [address] [place] [address] Care Team Providers Care Water Aerobics Instructor Name Role Phone Carlos Del Valle MD Primary Care Provider [phone] Source Comments [facility],non-owned Affiliates and Associated Physician Practices is amultiple site organization consisting of ambulatory clinics and hospital sitesin [place], [place], [place] and [place]. This disclosure is being madepursuant to the Care Everywhere program and may not contain all information available regarding this patient. Last updated 18.[facility] Allergies Active Allergy Reactions Criticality Noted Date Comments Ciprofloxacin 12/28/2007 Sulfa Drugs Rash Medium 11/17/2017 Medications * Be aware that medications may not be up to date on this document. Alwaysverify current medications with the patient. levothyroxine (LEVOXYL) 75 MCG tablet Take 1 Tab by mouth daily. 30 4 03/27/2008 Active pravastatin (PRAVACHOL) 40 MG tablet Take 1 Tab by mouth daily. 30 4 03/27/2008 Active Vitamin D 1000 UNIT TABSIndications: Chronic diarrhea,RUQ abdominal pain,LFT's Abnormal Take by mouth daily. Active vitamin B-12 (CYANOCOBALAMIN) 1000 MCG tabletIndication s:Chronic diarrhea,RUQ abdominal pain,LFT's Abnormal Take by mouth daily. Active TYLENOL ALLERGY MULTI-SYMPTOM 2-5-325 MG TABS Take 325 Caps by mouth. Active omeprazole (PRILOSEC) 20 MG capsuleIndicatio ns:GERD (gastroesophagea l reflux disease),Esophag itis Take 1 Cap by mouth daily before breakfast. 30 11 04/18/2008 Active LABETALOL HCL PO Act sarah ALBUTEROL IN Active albuterol HFA (VENTOLIN HFA) 108 (90 BASE) MCG/ACT inhaler Inhale 2 puffs by mouth every 6 hours as needed 1 Inhaler 5 11/17/2017 Active predniSONE (DELTASONE) 20 MG tablet Take 1 tablet by mouth 2 times daily 14 tablet 11/17/2017 Active Active Problems Problem Noted Date Diagnosed Date Steatosis of liver 05/08/2008 GERD (gastroesophageal reflux disease) 8 Esophagitis 04/18/2008 ZACHARY (generalized anxiety disorder) 12/28/2007 Hypertension 10/03/2007 Overview (10/03/2007): 04 Hyperlipidemia 10/03/2007 Hypothyroidism 10/03/2007 Overview (10/03/2007): 05 Family History Medical History Relation Name Comments Other Brother HYPERLIPIDEMIA PA Father Other Father MYELODYSPLASIA Stroke Maternal Grandmother Other Mother HYPERLIPIDEMIA Stroke Paternal Grandfather Relation Name Status Comments Brother Father Maternal Grandmother Mother Paternal Grandfather Social History Tobacco Use Types Packs/Day Years Used Date Smoking Tobacco: Never Smokeless Tobacco: Never Alcohol Use Standard Drinks/Week Comments No 0 (1 standard drink = 0.6 oz pur e alcohol) Comments No Sex and Gender Information Value Date Recorded Sex Assigned at Not on file Legal Sex Female 10:03 AM CDT Gender Identity Not on file Sexual Orientation Not on file 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 Not on file Not on file Not on file Last Filed Vital Signs Vital Sign Reading Time Taken Comments Blood Pressure 132/78 11/17/2017 10:56 AM CDT Pulse 72 05/07/2008 2:55 PM WHITESMITH Temperature 36.7 C (98 F) 11/17/2017 10:56 AM CDT Respiratory Rate 16 11/17/2017 10:56 AM CDT Oxygen Saturation 96% 11/17/2017 10:56 AM CDT Inhaled Oxygen Concentration 95% 04/23/2008 8 :16 AM WHITESMITH Weight 129.3 kg (285 lb) 11/17/2017 10:56 AM CDT Height 175.3 cm (5' 9) 11/17/2017 10:56 AM CDT Body Mass Index 42.09 11/17/2017 10:56 AM CDT Plan of Treatment Health Maintenance Due Date Last Done Comments BONE DENSITY TESTING 1955 COLOGUARD (AGES 45-75) - COLON CA SCREENING 1953 CT COLONOGRAPHY - COLON CA SCREENING 1955 FIT - COLON CA SCREENING 1955 FLEX SIG - COLON CA SCREENING 1955 MEDICARE AWV 12 MONTHS 1955 DTAP/TDAP/TD VACCINES (1 - Tdap) 1972 PNEUMOCOCCAL VACCINE 50+ (1 of 1 - PCV) 2003 ZOSTER VACCINE (1 of 2) 2003 Respiratory Syncytial Virus (RSV) Vaccine Pt: or over 60 yrs (1 - Risk 60-74 years 1-dose series) 2013 MAMMOGRAM 11/28/2021 11/29/2019, 11/01, 03/26/2017 COVID-19 VACCINE ( - season) 2024 DEPRESSION SCREENING 05/03/2024 INFLUENZA VACCINE (Season Ended) 2025 02/27/2019 SCREENING FOR DIABETES 04/22/2026 , 04/04/2021, 04/04/2021, Additional history exists COLON MONITORING 10/05/2031 10/04/2021 COLONOSCOPY - COLON CA SCREENING 10/05/2031 10/04/2021 Colorectal Cancer Screening 10/05/2031 HEPATITIS C SCREENING Completed 04/04/2021 , 04/20/2008, 01/23/2008 HEPATITIS B VACCINE Aged Out No longe r eligible based on patient's age to complete this topic HIB VACCINE Aged Out No longer eligi ble based on patient's age to complete this topic HPV VACCINE Aged Out No longer eligi ble based on patient's age to complete this topic MENINGOCOCCAL (Group B) VACCINE SHARED DECISION-MAKING Aged Out No longer eligible based on patient's age to complete this topic MENINGOCOCCAL GROUPS A/C/Y/W VACCINE Aged Out No longer eligible based on patient's age to complete this topic Procedures Procedure Name Priority Date/Time Associated Diagnosis Comments HEPATITIS C ANTIBODY Routine 04/20/2008 11:23 AM WHITESMITH Chronic Diarrhea RUQ Abdominal Pain LFT's Abnormal COMPREHENSIVE METABOLIC PANEL Routine 01/23/2008 9:23 AM CDT Elevated Liver Enzymes from Last 3 Months or Most Recently Relevant to Health Maintenance Results * HEPATITIS C ANTIBODY (04/20/2008 11:23 AM WHITESMITH) Hepatitis C Antibody Screen Nonreactive Nonreactive [facility] BLOOD SPECIMEN / Unknown 04/20/2008 11:23 AM WHITESMITH 04/20/2008 11:23 AM WHITESMITH Narrative Resulting Agency Comment Performed By [facility] [address] [place] [id number] Tyrell De Jesus MD LAB - CHEMISTRY ORDERABLES Fin al Result [facility] [address] [place] [address] * (ABNORMAL) COMPREHENSIVE METABOLIC PANEL (01/23/2008 9:23 AM CDT) Glucose 120(H) 65 - 99 mg/dL [facility] ACCOUNT BILL BUN 16 5 - 26 mg/dL [facility] ACCOUNT BILL Creatinine 0.90 0.57 - 1.00 mg/dL [facility] ACCOUNT BILL eGFR by MDRD >60 60 - 128 mL/min/1.7 3 [facility] ACCOUNT BILL eGFR by MDRD >60 60 - 128 mL/min/1.7 3 [facility] ACCOUNT BILL Comment: Note: Persistent reduction for 3 months or more in an eGFR <60 mL/min/1.73 m2 defines CKD. Patients with eGFR values >/=60 mL/min/1.73 m2 may also have CKD if evidence of persistent proteinuria is present. Additional information may be found at www.kdoqi.org. BUN/Creatinine Ratio 18 8 - 27 [facility] ACCOUNT BILL Sodium 140 135 - 145 mmol/L [facility] ACCOUNT BILL Potassium 4.4 3.5 - 5.2 mmol/L [facility] ACCOUNT BILL Chloride 104 97 - 108 mmol/L [facility] ACCOUNT BILL CO2 24 20 - 32 mmol/L [facility] ACCOUNT BILL Calcium 9.2 8.5 - 10.6 mg/dL [facility] ACCOUNT BILL Protein Total 7.2 6.0 - 8.5 g/dL [facility] ACCOUNT BILL Albumin 4.2 3.5 - 5.5 g/dL [facility] ACCOUNT BILL Globulin Total 3.0 1.5 - 4.5 g/dL [facility] ACCOUNT BILL Albumin/Globulin Ratio 1.4 1.1 - 2.5 [facility] ACCOUNT BILL Bilirubin Total 0.3 0.1 - 1.2 mg/dL [facility] ACCOUNT BILL Alkaline Phosphatase 101 25 - 150 IU/L [facility] ACCOUNT BILL AST 47(H) 0 - 40 IU/L [facility] ACCOUNT BILL ALT 52(H) 0 - 40 IU/L [facility] ACCOUNT BILL BLOOD SPECIMEN / Unknown 01/23/2008 9:23 AM CDT 01/23/2008 5:50 PM CDT Narrative Resulting Agency Comment [facility] [address] [id number] [facility] IN[facility] LAB - CHEMISTRY ORDERABLE S Final Result [facility] ACCOUNT BILL [address] [place] [address] from Last 3 Months or Most Recently Relevant to Health Maintenance Insurance [facility] MEDICARE Care Teams Water Aerobics Instructor Relationship Specialty Start Date End Date Carlos Del Valle MD [address] [place] [id number] PCP - General Family Medicine 02/02/19
== END 2024-10-10 13:12 | disposition short-term general hospital (02) ==
LOC: EXPBETH 12:35
PROVIDERS: Emergency Provider Nurse Practitioner Family; PCP Family Medicine
DX: J40 Bronchitis, not specified as acute or chronic (principal); I48.91 Unspecified atrial fibrillation; E11.9 Type 2 diabetes mellitus without complications; I10 Essential (primary) hypertension; E03.9 Hypothyroidism, unspecified; K21.9 Gastro-esophageal reflux disease without esophagitis; M19.90 Unspecified osteoarthritis, unspecified site
CPT/HCPCS: 99212; G0463

== ENCOUNTER 2024-10-25 11:17 | Emergency (ER) | payer MEDICARE, SELFPAY ==
--- NOTE | ~2024-10-25 | XR_ITS ---
XR shoulder LT min 2V Ordering provider: Sarai Rivera NP History: . FALL ON TO LEFT SIDE WITH ARM TUCKED IN, UPPER HUMERUS PAIN . Comparison: None. FINDINGS: BONES: Comminuted fracture involving the head of the left humerus. No other definite fractures seen. JOINT SPACES: The acromioclavicular joint is normal. The glenohumeral joint is normal. SOFT TISSUES: Normal. IMPRESSION: Comminuted fracture of the left humeral head. Reviewed, dictated and finalized at location A.
--- NOTE | ~2024-10-25 | XR_ITS ---
[id number] Ordering provider: Sarai Rivera NP History: . posterior pain after fall . Comparison: January 18, 2023 FINDINGS: BONES: Healing fracture in the left 10th rib anteriorly. LEFT LUNG: No effusions or infiltrates. No pneumothorax. SOFT TISSUES: Normal. IMPRESSION: Highly suggestive of healing anterior left 10th rib fracture. Follow-up advised. Reviewed, dictated and finalized at location A. IMPRESSION: Highly suggestive of healing anterior left 10th rib fracture. Follow-up advised .
--- NOTE | ~2024-10-25 | XR_ITS ---
EXAM/ PROCEDURE: XR elbow LT min 3V - 10/25/2024 12:00 CDT HISTORY: 69 years old Female with FALL ON TO LEFT SIDE WITH ARM TUCKED IN, GEN PAIN COMPARISON: None available TECHNIQUE: Four view(s) FINDINGS/ IMPRESSION: There are no fractures or dislocations.Joint spaces are within normal limits Reviewed, dictated and finalized at location A.
[2024-10-25 11:28] VITALS: BP 133/78; PULSE 78; RESP 20; TEMP 37.1; O2SAT 99
--- NOTE | 2024-10-25 11:31 | ED_ITS ---
HPI - Extremity Injury (Upper) General Chief Complaint: Extremity Injury, Upper Stated Complaint: Left arm/rib injury Time Seen by Provider: 10/25/24 11:31 Source: patient Mode of arrival: ambulatory Limitations: no limitations History of Present Illness HPI narrative: 69 yo F presents with pain to L upper arm and L posterior ribs. Pt states she was rushing to get into the house yesterday to use the bathroom and tripped and fell. Fell forward, landing in her to go box of food. Denies LOC. Normal for her balance to be off, uses a motorized wheelchair when at home. Has not taken any OTC pain medications but does have prescription tramadol and diclofenac. all systems reviewed and negative except as noted above. Related Data Home Medications ?Medication ?Instructions ?Recorded ?Confirmed ?Last Taken ?Type atorvastatin 20 mg tablet mg 01/18/23 Unknown History gabapentin 300 mg capsule mg 01/18/23 Unknown History labetalol 200 mg tablet mg 01/18/23 Unknown History levothyroxine 150 mcg tablet mcg 01/18/23 Unknown History metformin 1,000 mg tablet mg 01/18/23 Unknown History montelukast 10 mg tablet mg 01/18/23 Unknown History tizanidine 4 mg tablet mg 01/18/23 Unknown History tramadol 50 mg tablet mg 01/18/23 Unknown History diclofenac sodium 75 mg mg PO 12/28/23 Unknown History tablet,delayed release furosemide 40 mg tablet mg 10/10/24 Unknown History budesonide-formoterol HFA 80 inhalation 10/25/24 Unknown History mcg-4.5 mcg/actuation aerosol inhaler (Breyna) cyanocobalamin (vitamin B-12) mcg 10/25/24 Unknown History 1,000 mcg/mL injection solution Allergies Allergy/AdvReac Type Severity Reaction Status Date / Time Sulfa (Sulfonamide Allergy Intermediate Hives / Verified 10/25/24 11:31 Antibiotics) Red Face methotrexate Allergy Blister Verified 10/25/24 11:31 prednisone AdvReac Other Verified 10/25/24 11:31 Review of Systems Review of Systems: CONSTITUTIONAL: Denies fever, chills, or sweats. EYES: Denies visual changes, redness, or discharge. ENT: Denies rhinorrhea, congestion, sore throat, or otalgia. CARDIOVASCULAR: Denies chest pain, palpitations, or edema. RESPIRATORY: Denies cough or dyspnea. GASTROINTESTINAL: Denies abdominal pain, nausea, vomiting, or diarrhea. GENITOURINARY: Denies dysuria or hematuria. SKIN: Denies rash or itching. MUSCULOSKELETAL: Reports left upper arm pain and left posterior rib pain NEUROLOGIC: Denies headache, numbness, or weakness. PSYCHIATRIC: Denies anxiety or depression. All other systems reviewed are negative, except as documented in HPI. [facility] Past Medical History Medical History (Updated 10/26/24 @ 00:01 by Traci Ignacio) Atrial fibrillation Arthritis Diabetes Hypothyroidism GERD (gastroesophageal reflux disease) Hyperlipidemia Hypertension Bronchitis Asthma Surgical History Surgical History (Updated 01/19/23 @ 10:28 by Shahrzad Carvalho NP) History of dental surgery History of hysterectomy History of cholecystectomy Social History Social History (Updated 01/19/23 @ 10:38 by Shahrzad Carvalho NP) Smoking status: Never smoker Alcohol intake: unknown Substance use type: does not use Living arrangements: with family Gender identity (if verbalized by the patient): Female Comments At time of signature, agree with nursing past medical, surgical, social and family history. There is no relevant family history pertinent to the presenting complaint. Exam Narrative: GENERAL: This is a well-nourished, well-developed patient, in no apparent distress. HEAD: normocephalic, atraumatic. EYES: PERRL. Sclera clear/white. Vision is grossly intact. EARS: External ears normal NOSE: External nose normal NECK: Neck supple, non-tender without lymphadenopathy, masses or thyromegaly. CARDIOVASCULAR: Regular rate and rhythm without murmurs, gallops, or rubs. RESPIRATORY: Clear to auscultation. Breath sounds equal bilaterally. No wheezes, rales, or rhonchi. SKIN: warm, Dry, intact with no suspicious lesions or rash, good texture and turgor. NEURO: awake, alert, and oriented to person, place and time. There were no obvious focal neurologic abnormalities. EXTREMITIES: difficult to assess pain to left upper extremity due to decreased range motion. Tenderness to left upper arm extending into elbow. Normal range of motion to left wrist without tenderness. Distal neurovascularly intact. No swelling or deformity noted. BACK: Tenderness to left-sided mid back, posterior ribs. No deformity noted. Course Course Level of Care: Express Care Visit Vital Signs Vital signs: Vital Signs Temperature 37.1 C 10/25/24 11:28 Pulse Rate 78 10/25/24 11:28 Respiratory Rate 20 10/25/24 11:28 Blood Pressure 133/78 10/25/24 11:28 Pulse Oximetry 99 10/25/24 11:28 Oxygen Delivery Room Air 10/25/24 11:28 Temperature 37.1 C 10/25/24 11:28 Pulse Rate 78 10/25/24 11:28 Respiratory Rate 20 10/25/24 11:28 Blood Pressure 133/78 10/25/24 11:28 Pulse Oximetry 99 10/25/24 11:28 Oxygen Delivery Room Air 10/25/24 11:28 Reviewed MDM - Extremity Injury (Upper) MDM Narrative Medical decision making narrative: discussed x-ray results with patient. Patient placed in left shoulder immobilizer. Referred to Orthopedics for follow-up. Imaging Data My impression: agree with radiologist Radiologist's impression: XR shoulder LT min 2V Ordering provider: Sarai Rivera NP History: . FALL ON TO LEFT SIDE WITH ARM TUCKED IN, UPPER HUMERUS PAIN . Comparison: None. FINDINGS: BONES: Comminuted fracture involving the head of the left humerus. No other definite fractures seen. JOINT SPACES: The acromioclavicular joint is normal. The glenohumeral joint is normal. SOFT TISSUES: Normal. IMPRESSION: Comminuted fracture of the left humeral head. Discharge Plan Discharge Clinical Impression: Closed left humeral fracture, Contusion of rib on left side Patient Disposition: Home Condition: Stable Instructions: Antibiotic Form Additional Instructions: The x-ray of your left shoulder showed a fracture to your humerus bone. The x-ray of your left ribs showed an old fracture. There is not new fracture w here you are experiencing pain. Follow-up with prepress specialist for further treatment of your fracture. Call today and schedule an appointment. Patient Language: Palestinian Prescriptions: No Action atorvastatin 20 mg tablet labetalol 200 mg tablet tizanidine 4 mg tablet tramadol 50 mg tablet metformin 1,000 mg tablet levothyroxine 150 mcg tablet gabapentin 300 mg capsule montelukast 10 mg tablet albuterol sulfate 90 mcg/actuation HFA aerosol inhaler 2 puff inhalation QID PRN (Reason: shortness of breath or wheezing) Qty: 6.7 0RF diclofenac sodium 75 mg tablet,delayed release (DR/EC) PO furosemide 40 mg tablet cyanocobalamin (vitamin B-12) 1,000 mcg/mL solution budesonide-formoterol [Breyna] 80-4.5 mcg/actuation HFA aerosol inhaler INHALATION Follow-up/Referrals: Eligio,Carlos Zee MD [Primary Care Provider] - Efe Andrews MD [Physician] - ( follow-up with prepress specialist for further evaluation) Time of Disposition: 12:50
== END 2024-10-25 13:14 | disposition home or self-care (01) ==
PROVIDERS: Emergency Provider Nurse Practitioner Family; PCP Family Medicine
DX: S42.302A Unspecified fracture of shaft of humerus, left arm, initial encounter for closed fracture (principal); S20.212A Contusion of left front wall of thorax, initial encounter; I48.91 Unspecified atrial fibrillation; E11.9 Type 2 diabetes mellitus without complications; E03.9 Hypothyroidism, unspecified; E78.5 Hyperlipidemia, unspecified; I10 Essential (primary) hypertension; Z79.899 Other long term (current) drug therapy; W01.0XXA Fall on same level from slipping, tripping and stumbling without subsequent striking against object, initial encounter; Y92.009 Unspecified place in unspecified non-institutional (private) residence as the place of occurrence of the external cause
CPT/HCPCS: 71101; 73030; 73080; 99214; G0463